=== PATIENT | male | born 1990 | race Caucasian/White ===

== ENCOUNTER 2016-10-18 12:57 | Emergency (ER) | payer OTHER ==
--- NOTE | 2016-10-18 13:25 | ED GI/GU/ABDOMINAL COMPLAINT ---
History of Present Illness General Chief Complaint: Abdominal Pain/Flank Pain Stated Complaint: RT ABD PAIN X 2DYS Source: patient Exam Limitations: no limitations Vital Signs & Intake/Output Vital Signs & Intake/Output Vital Signs Date Time Temp Pulse Resp B/P Pulse O2 O2 Flow FiO2 Ox Delivery Rate 10/18 1720 98.6 85 18 129/83 98 Room Air 10/18 1545 98.6 76 18 136/84 98 Room Air 10/18 1309 97.1 100 20 147/97 100 Room Air Allergies Coded Allergies: NO KNOWN ALLERGIES (05/23/13) Reconcile Medications Adalimumab (Humira Pen) 40 MG/0.8 ML PEN.IJ.KIT 1 SYR SC Q2W UNKNOWN ( Reported) Albuterol Sulfate (Proair Hfa) 90 MCG HFA.AER.AD 2 PUF INH Q4-6 PRN PRN BREATHING PROBLEMS (Reported) Cholestyramine (With Sugar) (Cholestyramine Packet) 4 GRAM POWD.PACK 1 PAC PO DAILY UNKNOWN (Reported) Desipramine HCl 10 MG TABLET 2 TAB PO QPM UNKNOWN (Reported) Dicyclomine HCl 10 MG CAPSULE 1 CAP PO Q6P PRN GI (Reported) Dicyclomine Hydrochloride (Bentyl) 10 MG CAPSULE 1 CAP PO TID PRN ABDOMINAL SPASMS Fluticasone/Salmeterol (Advair 250-50 Diskus) 250 MCG-50 MCG/DOSE BLST.W.DEV 1 PUF INH BID BREATHING PROBLEMS (Reported) Olopatadine HCl (Patanol) 0.1 % DROPS 1 GTT OPH BID ALLERGIES (Reported) Ondansetron (Zofran Odt) 4 MG TAB.RAPDIS 1 TAB SL TID PRN NAUSEA/VOMITING Triage Note: PT PRESENTS TO ER C/O OF RUQ PAIN THAT STARTED TWO DAYS AGO. PT STATES HE HAD AN ABDOMINAL XRAY TO LOOK FOR BLOCKAGES ON FRIDAY BECAUSE OF HIS CROHNS HX AND XRAY WAS NEGATIVE. PT ALSO C/O OF NAUSEA. Triage Nurses Notes Reviewed? yes HPI: This patient is a 26-year-old male with a past medical history including Crohn's disease requiring multiple abdominal surgeries who presented to the emergency department today for evaluation of abdominal pain. The patient reported that his pain began on Friday evening after he ate food. He reported the pain began abruptly approximately 2-3 minutes after eating. He reported that the pain is pretty constant and ranges from a 5 out of 10 to a 7 out of 10. The pain is sharp and occasionally radiates to his left upper abdomen, but primarily stays in his right upper abdomen. The patient reported nausea, but no vomiting. He reported some chills today, but no fevers. He denied any chest pain, difficulty breathing, urinary symptoms. The patient did report that he has been constipated. His last bowel movement was this morning and hard. He reported that he typically lives his bowels approximately 5-6 times a day. He denied any diarrhea or blood in the stool. (MEENAKSHI BARRIOS PA-C) Past History Travel History Traveled to [place] past 21 day No Medical History Any Pertinent Medical History? see below for history Neurological: NONE EENT: NONE Gastrointestinal: Crohn's disease, PERFORATION Surgical History Surgical History: RECTAL FISTULA, ILEECTOMY, ABDOMINAL MESH Psychosocial History What is your primary language Chinese Tobacco Use: Never used Family History Hx Contributory? No (MEENAKSHI BARRIOS PA-C) Review of Systems Review of Systems Constitutional: Reports: see HPI. EENTM: Reports: no symptoms. Respiratory: Reports: no symptoms. Cardiovascular: Reports: no symptoms. GI: Reports: see HPI. Genitourinary: Reports: no symptoms. Musculoskeletal: Reports: no symptoms. Skin: Reports: no symptoms. Neurological/Psychological: Reports: no symptoms. All Other Systems: Reviewed and Negative (MEENAKSHI BARRIOS PA-C) Physical Exam Physical Exam Gastrointestinal: normal bowel sounds, soft, NONDISTENDED. nO ORGANOMEGALY APPRECIATED. tENDERNESS TO PALPATION IN THE RIGHT UPPER QUADRANT. pOSITIVE Tellez SIGN. nO mCbURNEY'S POINT TENDERNESS. nO REBOUND OR GUARDING Comments: Well-developed well-nourished person in no acute distress HEENT: Normal EENT exam, moist mucous membranes Pupils equally round and reactive to light. Neck: Supple, no lymphadenopathy Back: Normal inspection. Normal gait Cardiovascular: Regular rate and rhythm with no murmurs Respiratory: No respiratory distress. Breath sounds clear to auscultation bilaterally Extremity: Normal and equal pulses Neuro: Alert oriented x3, cranial nerves II through XII grossly intact. Skin: No appreciable rash on exposed skin, skin is warm and dry. Psych: Mood and affect is normal Core Measures ACS in differential dx? No Severe Sepsis Present: No Septic Shock Present: No (MEENAKSHI BARRIOS PA-C) Progress Differential Diagnosis: AMI, appendicitis, biliary colic, bowel obstruction, colon cancer, cholecystitis, diverticulitis, gastritis, hepatitis, ischemic bowel, inflamm bowel dis, pancreatitis, PUD/GERD, perforated viscous, pyelonephritis, SBO, ureterolithiasis, UTI/pyelo Plan of Care: Orders Procedure Date/time Status RAPID VIRAL INFLUENZA A 10/18 131 Complete LIPASE 10/18 131 Complete LACTIC ACID 10/18 131 Complete DIRECT BILIRUBIN 10/18 131 Complete COMPREHENSIVE METABOLIC PANEL 10/18 1312 Complete CBC WITHOUT DIFFERENTIAL 10/18 1311 Complete AMYLASE 10/18 1312 Complete URINALYSIS 10/18 1304 Complete Laboratory Tests 10/18/16 1612: Lactic Acid Cancelled 10/18/16 1315: Anion Gap 14, Estimated GFR > 60, BUN/Creatinine Ratio 13.0, Glucose 93, Lactic Acid 1.5, Calcium 9.5, Total Bilirubin 0.8, Direct Bilirubin 0.5 H, AST 25, ALT 42, Alkaline Phosphatase 95, Total Protein 9.2 H, Albumin 5.0, Globulin 4.2, Albumin/Globulin Ratio 1.2, Amylase 73, Lipase 58, CBC w Diff MAN DIFF ORDERED, RBC 5.35, MCV 89.0, MCH 29.8, RDW 13.5, MPV 7.8, Gran % 28.5 L, Lymphocytes % 56.7 H, Monocytes % 7.8, Eosinophils % 6.4 H, Basophils % 0.6, Absolute Granulocytes 2.1, Absolute Lymphocytes 4.3 H, Absolute Monocytes 0.6, Absolute Eosinophils 0.5, Absolute Basophils 0, Platelet Estimate ADEQUATE, Normocytic RBCs VERIFIED, Normochromic RBCs VERIFIED, PUBS MCHC 33.4 10/18/16 1305: Urine Color YEL, Urine Clarity CLEAR, Urine pH 6.0, Ur Specific [place] 1.015, Urine Protein NEG, Urine Ketones NEG, Urine Nitrite NEG, Urine Bilirubin NEG, Urine Urobilinogen 0.2, Ur Leukocyte Esterase NEG, Ur Microscopic EXAM NOT REQUIRED, Urine Hemoglobin NEG, Urine Glucose NEG Diagnostic Imaging: Viewed by Me: CT Scan, Ultrasound. Discussed w/RAD: CT Scan, Ultrasound. Radiology Impression: PATIENT: SUSHMA OCAMPO PRESENT AGE: 26 PATIENT ACCOUNT NO: [id number] : 88 LOCATION: [facility] ORDERING PHYSICIAN: MEENAKSHI BARRIOS PA-C SERVICE DATE: 10/18/161417 EXAM TYPE: CAT - CT ABD & PELVIS W IV CONTRAST EXAMINATION: CT ABDOMEN AND PELVIS WITH CONTRAST CLINICAL INFORMATION: Right upper quadrant pain COMPARISON: CT abdomen and pelvis 04/27/2014 TECHNIQUE: Multidetector volumetric imaging was performed of the abdomen and pelvis before and after the IV administration of 94 mL of Omnipaque 300 intravenous contrast. Sagittal and coronal reformatted images were obtained on the technologist's workstation. DLP: 282.2 mGy-cm. FINDINGS: LUNG BASES: The visualized lung bases are unremarkable. LIVER, GALLBLADDER, AND BILIARY TREE: Within segment 8 of the liver there is a hypodense lesion measuring 2.3 x 2.3 cm, previously 1.7 x 1.3 cm. The Hounsfield units are not consistent with a simple cyst in the lesion remains indeterminate. The margins are ill-defined (image 19, series 2). Remainder of the liver enhances within normal range. No other lesion. No intrahepatic or extra hepatic biliary dilatation. The gallbladder is unremarkable with no evidence of radiopaque gallstones, gallbladder wall thickening, or obvious pericholecystic inflammatory changes. PANCREAS: Unremarkable. SPLEEN: Spleen is top normal in size measuring 12.5 cm in length. ADRENAL GLANDS: Unremarkable. KIDNEYS AND URETERS: The kidneys are normal in size, shape, and attenuation. No hydronephrosis, hydroureter, or calculi seen. No perinephric stranding. BLADDER: Unremarkable. GASTROINTESTINAL TRACT: Surgical anastomosis is noted in the right upper quadrant associated with the proximal colon. Dense stool is noted within the proximal colon. However, the small bowel proximal to this level is normal in caliber. There are no inflammatory changes associated with this loop of bowel in the right upper quadrant. The remainder of the small and large bowel are unremarkable. ABDOMINAL WALL: No significant hernia is appreciated. LYMPH NODES: There is no pathologic mesenteric adenopathy. A few normal caliber lymph nodes are noted throughout the mesentery. There are enlarged lymph nodes within the retroperitoneal region. The largest is located at the level of the inferior pole of the left kidney measuring 1.1 cm in short axis diameter. Overall, the number lymph nodes in the retroperitoneal and periaortic region are increased in number. VASCULAR: Unremarkable. PELVIC VISCERA: The prostate and seminal vesicles appear grossly unremarkable. There is no free fluid within the pelvis. No pathologic pelvic adenopathy identified. OSSEOUS STRUCTURES: Unremarkable. IMPRESSION: 1. Normal gallbladder. 2. Enlarging size of indeterminant right liver lesion compared to 2014. This finding in combination with prominent retroperitoneal adenopathy raises the possibility of a testicular neoplasm in this age group. Recommend further evaluation of the liver with dedicated MRI with and without contrast. Consider testicular ultrasound in conjunction with physical examination. DICTATED BY: CAROLA FLORES MD DATE/TIME DICTATED:10/18/161440 HOME APPLIANCE TECHNICIAN:LETITIA DATE/TIME TRANSCRIBED:10/18/161440 CONFIDENTIAL, DO NOT COPY WITHOUT APPROPRIATE AUTHORIZATION. <Electronically signed in Other Vendor System> SIGNED BY: CAROLA FLORES MD 10/18/16 1501, PATIENT: SUSHMA OCAMPO PRESENT AGE: 26 PATIENT ACCOUNT NO: [id number] : 88 LOCATION: [facility] ORDERING PHYSICIAN: MEENAKSHI BARRIOS PA-C SERVICE DATE: 10/18/16 EXAM TYPE: US - US-TESTICULAR EXAMINATION: US SCROTUM CLINICAL INFORMATION: CT scan shows liver mass and mild retroperitoneal adenitis. Evaluate for testicular neoplasm. COMPARISON: CT scan of the abdomen and pelvis dated 10/18/2016. TECHNIQUE: A sonogram of the scrotum was performed assessing [place]-scale appearance and color Doppler flow. FINDINGS: RIGHT: Right testicle measures 4.1 x 2.4 x 3.1 cm, volume 21.7 mL. Parenchymal echotexture is normal. No focal testicular parenchymal lesions are visualized. Normal symmetric intratesticular flow is visualized. Right epididymal head is normal in size. Small right hydrocele is seen. No varicocele is seen. LEFT: Left testicle measures 4.4 x 2.8 x 3.3 cm, volume 28.9 mL. Parenchymal echotexture is normal. No focal testicular parenchymal lesions are visualized. Normal symmetric intratesticular flow is visualized. Left epididymal head is normal in size. Small left hydrocele is seen. No varicocele is seen. IMPRESSION: 1. Small bilateral hydroceles. 2. Bilateral testicle is normal. No focal testicular mass. 3. No scrotal mass. DICTATED BY: OLGA OROSCO MD DATE/TIME DICTATED:10/18/161643 HOME APPLIANCE TECHNICIAN:LETITIA DATE/TIME TRANSCRIBED:10/18/161643 CONFIDENTIAL, DO NOT COPY WITHOUT APPROPRIATE AUTHORIZATION. <Electronically signed in Other Vendor System> SIGNED BY: OLGA OROSCO MD 10/18/16 7848 Initial ED EKG: none Comments: 10/18/2016 5:31:39 PM: I spoke to the on-call juice standardizer at the practice where this patient sees his regular juice standardizer. Updated him on the results of the CT scan. He reported that this patient recently had an MRI in 2015 which did not show a lesion on the liver. However, there was a lesion seen on MRI back in 2012, at 1.7 cm. Updated this physician on the patient's laboratory results and workup here in the emergency department. He reported this patient should be stable for outpatient follow-up. He reported that he will be passing this information on to this patient's regular juice standardizer. 10/18/2016 5:36:26 PM: Was at the patient's bedside for reevaluation. Updated him on all imaging and laboratory studies. Discussed this patient with Dr. Garcia. The patient reported relief of his nausea and abdominal pain. He will be following up in the office with his juice standardizer. Encourage the patient to call to schedule a follow-up appointment tomorrow. (MEENAKSHI BARRIOS PA-C) Departure Departure Disposition: HOME OR SELF CARE Condition: Stable Clinical Impression Primary Impression: Abdominal pain Qualifiers: Abdominal location: right upper quadrant Qualified Code: R10.11 - Right upper quadrant pain Referrals: JOAQUIM FATIMA MD Additional Instructions: Please call your juice standardizer tomorrow morning to schedule a follow-up appointment. Take Zofran as prescribed for nausea. Take Advil as prescribed for abdominal spasms. Please be sure to stay hydrated. Return to the emergency department for any worsening symptoms or concerns. Departure Forms: Customer Survey General Discharge Information Prescriptions: Current Visit Scripts Ondansetron (Zofran Odt) 1 TAB SL TID PRN NAUSEA/VOMITING #10 TAB Dicyclomine Hydrochloride (Bentyl) 1 CAP PO TID PRN ABDOMINAL SPASMS #15 CAP (MEENAKSHI BARRIOS PA-C) PA/HADOOP ENGINEER Co-Sign Statement Statement: ED Attending supervision documentation- [] I saw and evaluated the patient. I have also reviewed all the pertinent lab results and diagnostic results. I agree with the findings and the plan of care as documented in the PA's/HADOOP ENGINEER's documentation. [X] I have reviewed the ED Record and agree with the PA's/HADOOP ENGINEER's documentation. [] Additions or exceptions (if any) to the PAs/HADOOP ENGINEER's note and plan are summarized below: [] (LYNN PACK,ANDREIA)
[2016-10-18 13:32] LABS: ABSOLUTE BASOPHIL COUNT 0 /CUMM (0.0-0.2); ABSOLUTE EOSINOPHIL COUNT 0.5 /CUMM (0.0-0.7); ABSOLUTE GRANULOCYTE CT 2.1 /CUMM (1.4-6.5); ABSOLUTE LYMPH COUNT 4.3 /CUMM (1.2-3.4); ABSOLUTE MONOCYTE COUNT 0.6 /CUMM (0.10-0.60); BASOPHIL % 0.6 % (0.0-2.0); EOSINOPHIL % 6.4 % (0-5); GRANULOCYTE % 28.5 % (42.2-75.2); HEMATOCRIT 47.6 % (42-52); MEAN CORPUSCULAR HGB 29.8 PG (27.0-31.0); MEAN CORPUSCULAR HGB CONC 33.4 G/DL (33.0-37.0); MEAN PLATELET VOLUME 7.8 FL (7.4-10.4); PLATELET COUNT 238 /CUMM (130-400); RBC DISTRIBUTION WIDTH 13.5 % (11.5-14.5); RED BLOOD CELL CT 5.35 /CUMM (4.70-6.10); WHITE BLOOD CELL COUNT 7.5 /CUMM (4.8-10.8)
[2016-10-18] MEDS ORDERED: CHOLESTYRAMINE P4 GM PO (13:46)
[2016-10-18] MEDS ORDERED: HUMIRA PEN40 MG/0.8 SC (13:46)
[2016-10-18] MEDS ORDERED: ADVAIR 250-501 EACH INH (13:47)
[2016-10-18] MEDS ORDERED: DESIPRAMINE HCL PO (13:47)
[2016-10-18] MEDS ORDERED: PROAIR HFA8.5 GM INH (13:47)
[2016-10-18] MEDS ORDERED: DICYCLOMINE HCL10 M1 PO (13:47)
[2016-10-18] MEDS ORDERED: PATANOL5 ML OPH (13:48)
--- NOTE | 2016-10-18 15:01 | CT SCAN REPORT ---
EXAMINATION: CT ABDOMEN AND PELVIS WITH CONTRAST CLINICAL INFORMATION: Right upper quadrant pain COMPARISON: CT abdomen and pelvis 04/27/2014 TECHNIQUE: Multidetector volumetric imaging was performed of the abdomen and pelvis before and after the IV administration of 94 mL of Omnipaque 300 intravenous contrast. Sagittal and coronal reformatted images were obtained on the technologist's workstation. DLP: 282.2 mGy-cm. FINDINGS: LUNG BASES: The visualized lung bases are unremarkable. LIVER, GALLBLADDER, AND BILIARY TREE: Within segment 8 of the liver there is a hypodense lesion measuring 2.3 x 2.3 cm, previously 1.7 x 1.3 cm. The Hounsfield units are not consistent with a simple cyst in the lesion remains indeterminate. The margins are ill-defined (image 19, series 2). Remainder of the liver enhances within normal range. No other lesion. No intrahepatic or extra hepatic biliary dilatation. The gallbladder is unremarkable with no evidence of radiopaque gallstones, gallbladder wall thickening, or obvious pericholecystic inflammatory changes. PANCREAS: Unremarkable. SPLEEN: Spleen is top normal in size measuring 12.5 cm in length. ADRENAL GLANDS: Unremarkable. KIDNEYS AND URETERS: The kidneys are normal in size, shape, and attenuation. No hydronephrosis, hydroureter, or calculi seen. No perinephric stranding. BLADDER: Unremarkable. GASTROINTESTINAL TRACT: Surgical anastomosis is noted in the right upper quadrant associated with the proximal colon. Dense stool is noted within the proximal colon. However, the small bowel proximal to this level is normal in caliber. There are no inflammatory changes associated with this loop of bowel in the right upper quadrant. The remainder of the small and large bowel are unremarkable. ABDOMINAL WALL: No significant hernia is appreciated. LYMPH NODES: There is no pathologic mesenteric adenopathy. A few normal caliber lymph nodes are noted throughout the mesentery. There are enlarged lymph nodes within the retroperitoneal region. The largest is located at the level of the inferior pole of the left kidney measuring 1.1 cm in short axis diameter. Overall, the number lymph nodes in the retroperitoneal and periaortic region are increased in number. VASCULAR: Unremarkable. PELVIC VISCERA: The prostate and seminal vesicles appear grossly unremarkable. There is no free fluid within the pelvis. No pathologic pelvic adenopathy identified. OSSEOUS STRUCTURES: Unremarkable. IMPRESSION: 1. Normal gallbladder. 2. Enlarging size of indeterminant right liver lesion compared to 2013. This finding in combination with prominent retroperitoneal adenopathy raises the possibility of a testicular neoplasm in this age group. Recommend further evaluation of the liver with dedicated MRI with and without contrast. Consider testicular ultrasound in conjunction with physical examination.
--- NOTE | 2016-10-18 16:51 | ULTRASOUND REPORT ---
EXAMINATION: US SCROTUM CLINICAL INFORMATION: CT scan shows liver mass and mild retroperitoneal adenitis. Evaluate for testicular neoplasm. COMPARISON: CT scan of the abdomen and pelvis dated 10/18/2016. TECHNIQUE: A sonogram of the scrotum was performed assessing [place]-scale appearance and color Doppler flow. FINDINGS: RIGHT: Right testicle measures 4.1 x 2.4 x 3.1 cm, volume 21.7 mL. Parenchymal echotexture is normal. No focal testicular parenchymal lesions are visualized. Normal symmetric intratesticular flow is visualized. Right epididymal head is normal in size. Small right hydrocele is seen. No varicocele is seen. LEFT: Left testicle measures 4.4 x 2.8 x 3.3 cm, volume 28.9 mL. Parenchymal echotexture is normal. No focal testicular parenchymal lesions are visualized. Normal symmetric intratesticular flow is visualized. Left epididymal head is normal in size. Small left hydrocele is seen. No varicocele is seen. IMPRESSION: 1. Small bilateral hydroceles. 2. Bilateral testicle is normal. No focal testicular mass. 3. No scrotal mass.
[2016-10-18 17:20] VITALS: BP 129/83
[2016-10-18] MEDS ORDERED: BENTYL10 M1 PO (17:38)
[2016-10-18] MEDS ORDERED: ZOFRAN ODT4 M1 SL (17:38)
[2017-03-10] MEDS ORDERED: FLONASE ALLERG9.9 ML (12:51)
[2017-03-10] MEDS ORDERED: ALLEGRA ALLERG180 M1 PO (12:51)
[2017-03-10] MEDS ORDERED: CYMBALTA30 M1 PO (12:51)
[2017-03-10] MEDS ORDERED: AMBIEN10 M1 PO (12:52)
[2017-03-10] MEDS ORDERED: OXYCODONE-ACET1 EAC1 PO (12:52)
== END 2016-10-18 17:47 ==
LOC: ERH 12:57
PROVIDERS: Physician Assistant
DX: R10.11 Right upper quadrant pain (principal)
CPT/HCPCS: 74177; 81003; 87804; 87804-59; 96374; 96375; J1885; J2405; J2765

== ENCOUNTER 2016-10-30 09:17 | Inpatient (IN) | payer OTHER ==
[~2016-10-30] VITALS: Ht 172.7 cm; Wt 72.6 kg
[~2016-10-30 09:17] MED LIST: ADVAIR 250-501 EACH INH; BENTYL10 M1 PO; CHOLESTYRAMINE P4 GM PO; DESIPRAMINE HCL PO; DICYCLOMINE HCL10 M1 PO; HUMIRA PEN40 MG/0.8 SC; PATANOL5 ML OPH; PROAIR HFA8.5 GM INH; ZOFRAN ODT4 M1 SL
--- NOTE | 2016-10-30 09:26 | NUR ---
PT AMB TO ROOM 1, AWAITING EVAL. Informed waiting has been performed.
--- NOTE | 2016-10-30 09:26 | ED GENERAL ADULT ---
History of Present Illness General Chief Complaint: Abdominal Pain/Flank Pain Stated Complaint: ABD PAIN HX OF CHRONS Source: patient Exam Limitations: no limitations Vital Signs & Intake/Output Vital Signs & Intake/Output Vital Signs Date Time Temp Pulse Resp B/P Pulse O2 O2 Flow FiO2 Ox Delivery Rate 10/30 1801 99.5 118 20 118/60 93 Room Air 10/30 1700 101.1 120 22 120/80 98 Room Air 10/30 1454 100.3 128 22 123/78 96 Room Air 10/30 1313 100.1 138 18 125/59 95 Room Air 10/30 1157 100.8 10/30 1150 100.8 130 20 118/67 100 Room Air 10/30 1135 100.3 10/30 1046 100.3 120 20 121/78 96 Room Air 10/30 0919 98.1 154 16 115/87 99 Room Air Allergies Coded Allergies: NO KNOWN ALLERGIES (05/23/13) Reconcile Medications Adalimumab (Humira Pen) 40 MG/0.8 ML PEN.IJ.KIT 1 SYR SC Q2W UNKNOWN ( Reported) Albuterol Sulfate (Proair Hfa) 90 MCG HFA.AER.AD 2 PUF INH Q4-6 PRN PRN BREATHING PROBLEMS (Reported) Cholestyramine (With Sugar) (Cholestyramine Packet) 4 GRAM POWD.PACK 1 PAC PO DAILY UNKNOWN (Reported) Desipramine HCl 50 MG TABLET 1 TAB PO QPM UNKNOWN (Reported) Dicyclomine HCl 10 MG CAPSULE 1 CAP PO Q6P PRN GI (Reported) Fluticasone Propionate/Salme (Advair Hfa 230-21 Mcg Inhaler) 230 MCG-21 MCG/ ACTUATION HFA.AER.AD BREATHING PROBLEMS (Reported) Olopatadine HCl (Patanol) 0.1 % DROPS 1 GTT OPH BID ALLERGIES (Reported) Ondansetron (Zofran Odt) 4 MG TAB.RAPDIS 1 TAB SL TID PRN NAUSEA/VOMITING Triage Note: PT STATES THAT HE HAS HISTORY OF [place] AND THAT HE HAS BEEN HAVING SHARP ABD PAIN SINCE LAST PM AND INTERMITTANT FEVERS. AFEBRILE AT THIS TIME, COMPLAINS OF NAUSEA. TOOK A PERCOCET AROUND 0615 THAT HELPED SOME WITH THE PAIN Triage Nurses Notes Reviewed? yes Onset: Abrupt Duration: week(s): Timing: recent history HPI: 10/30/16 26-year-old male presents to the emergency department for an exacerbation of Crohn's disease. According to the patient he had a history of Crohn's disease, he is status post abdominal resection and had his terminal ileum removed. He also has had a hernia repair. Now he comes in with 48 hours of crampy abdominal pain and severe nausea. He did have a bowel movement yesterday. The onset of the symptoms were abrupt, the duration has been 48 hours, the severity is significant as his symptoms required to come to the emergency department for care. The patient does say that he's had symptoms over the past week as well. I spoke with Dr. rodas informing the patient did have fever. He requested labs be drawn. The patient be given Zofran and IV fluids. He requested that I contact him after the results of the blood work And returned. Past History Travel History Traveled to [place] past 21 day No Medical History Any Pertinent Medical History? see below for history Neurological: NONE EENT: NONE Cardiovascular: NONE Respiratory: NONE Gastrointestinal: Crohn's disease, PERFORATION Hepatic: NONE Renal: NONE Musculoskeletal: NONE Psychiatric: NONE Endocrine: NONE Blood Disorders: NONE Cancer(s): NONE [employer]ING/Reproductive: NONE Surgical History Surgical History: RECTAL FISTULA, ILEECTOMY, ABDOMINAL MESH Psychosocial History What is your primary language Israeli Tobacco Use: Never used ETOH Use: denies use Illicit Drug Use: denies illicit drug use Family History Hx Contributory? No Review of Systems Review of Systems Constitutional: Denies: fever. EENTM: Denies: visual changes. Respiratory: Denies: short of breath. Cardiovascular: Denies: chest pain. GI: Reports: abdominal pain, nausea. Denies: vomiting. Genitourinary: Reports: no symptoms. Musculoskeletal: Reports: no symptoms. Skin: Denies: rash. Neurological/Psychological: Reports: no symptoms. Hematologic/Endocrine: Reports: no symptoms. Physical Exam Physical Exam General Appearance: alert, awake, anxious, mild distress Head: atraumatic, normal appearance Eyes: Bilateral: normal appearance, PERRL, EOMI. Ears, Nose, Throat: normal pharynx, normal ENT inspection Neck: normal inspection, supple, full range of motion Respiratory: normal breath sounds, chest non-tender, no respiratory distress Cardiovascular: regular rate/rhythm Peripheral Pulses: 4+ radial (R), 4+ radial (L) Gastrointestinal: soft, tenderness, diffuse, no rebound or guarding Back: normal range of motion Extremities: normal inspection, normal range of motion, no edema Neurologic/Psych: no motor/sensory deficits, awake, alert, oriented x 3 Skin: intact, normal color, warm/dry Core Measures ACS in differential dx? No CVA/TIA Diagnosis: No Severe Sepsis Present: No Septic Shock Present: No Progress Differential Diagnoses I considered the following diagnoses in my evaluation of the patient: [ Diverticulitis, Crohn's disease exacerbation, abscess, viral syndrome, gastroenteritis,] Plan of Care: Orders Procedure Date/time Status PHOSPHORUS 10/31 06 Active MAGNESIUM 10/31 599 Active GLUCOSE 10/31 599 Active CBC WITHOUT DIFFERENTIAL 10/31 599 Active BASIC ELECTROLYTES PLUS BUN&CR 10/31 599 Active Nothing by Mouth 10/30 D Active Patient Data 10/30 1523 Active Code Status 10/30 1523 Active Admit to inpatient 10/30 1451 Active Vital Signs 10/30 1451 Active URINALYSIS 10/30 1208 Complete LIPASE 10/30 0937 Complete COMPREHENSIVE METABOLIC PANEL 10/30 0937 Complete CBC WITHOUT DIFFERENTIAL 10/30 0937 Complete AMYLASE 10/30 0937 Complete VTE Mechanical Prophylaxis 10/30 UNK Active Vital Signs 10/30 UNK Active Intake & Output 10/30 UNK Active Current Medications Sig/Tawny Start time Last Medication Dose Stop Time Status Admin Budesonide/ 2 PUF BID 10/30 2200 AC Formoterol Fumarate (Symbicort) Heparin Sodium 5,000 UNIT Q8 10/30 2200 AC (Porcine) Albuterol Sulfate 2 PUF Q4P PRN 10/30 1545 AC (Ventolin) Acetaminophen 1,000 MG Q6P PRN 10/30 1530 AC (Ofirmev) N/A 1 UNIT (No Carrier) Hydromorphone HCl 0.6 MG Q4-6 PRN PRN 10/30 1530 AC (Dilaudid) Hydromorphone HCl 0.2 MG Q4P PRN 10/30 1530 AC (Dilaudid) Ondansetron HCl 4 MG Q6P PRN 10/30 1530 AC (Zofran) Laboratory Tests 10/30/16 1210: Urine Color YEL, Urine Clarity CLEAR, Urine pH 6.0, Ur Specific Bullock 1.015, Urine Protein NEG, Urine Ketones NEG, Urine Nitrite NEG, Urine Bilirubin NEG, Urine Urobilinogen 0.2, Ur Leukocyte Esterase NEG, Ur Microscopic EXAM NOT REQUIRED, Urine Hemoglobin NEG, Urine Glucose NEG 10/30/16 0945: Anion Gap 8, Estimated GFR > 60, BUN/Creatinine Ratio 9.2, Glucose 88, Calcium 9.6, Total Bilirubin 0.7, AST 26, ALT 50, Alkaline Phosphatase 107, Total Protein 8.5 H, Albumin 4.7, Globulin 3.8, Albumin/Globulin Ratio 1.2, Amylase 51, Lipase 40, CBC w Diff NO MAN DIFF REQ, RBC 5.14, MCV 86.2, MCH 29.7, RDW 13.1, MPV 7.2 L, Gran % 45.0, Lymphocytes % 35.7, Monocytes % 14.2 H, Eosinophils % 4.5, Basophils % 0.6, Absolute Granulocytes 2.1, Absolute Lymphocytes 1.7, Absolute Monocytes 0.7 H, Absolute Eosinophils 0.2, Absolute Basophils 0, PUBS MCHC 34.5 Initial ED EKG: none Departure Departure Disposition: STILL A PATIENT Condition: Stable Clinical Impression Primary Impression: Crohn disease Referrals: CHARLENE FAJARDO MD (PCP/Family) Departure Forms: Customer Survey General Discharge Information Comments The patient had ongoing pain. He was requiring IV narcotics for pain control. The case was discussed with his colorectal surgeon, Dr. Mansfield, he was admitted to the hospital for further care. CT on 10/18/16 PATIENT: SUSHMA OCAMPO PRESENT AGE: 26 PATIENT ACCOUNT NO: [id number] : 88 LOCATION: [facility] ORDERING PHYSICIAN: MEENAKSIH BARRIOS PA-C SERVICE DATE: 10/18/165701 EXAM TYPE: US - US-TESTICULAR EXAMINATION: US SCROTUM CLINICAL INFORMATION: CT scan shows liver mass and mild retroperitoneal adenitis. Evaluate for testicular neoplasm. COMPARISON: CT scan of the abdomen and pelvis dated 10/18/2016. TECHNIQUE: A sonogram of the scrotum was performed assessing [place]-scale appearance and color Doppler flow. FINDINGS: RIGHT: Right testicle measures 4.1 x 2.4 x 3.1 cm, volume 21.7 mL. Parenchymal echotexture is normal. No focal testicular parenchymal lesions are visualized. Normal symmetric intratesticular flow is visualized. Right epididymal head is normal in size. Small right hydrocele is seen. No varicocele is seen. LEFT: Left testicle measures 4.4 x 2.8 x 3.3 cm, volume 28.9 mL. Parenchymal echotexture is normal. No focal testicular parenchymal lesions are visualized. Normal symmetric intratesticular flow is visualized. Left epididymal head is normal in size. Small left hydrocele is seen. No varicocele is seen. IMPRESSION: 1. Small bilateral hydroceles. 2. Bilateral testicle is normal. No focal testicular mass. 3. No scrotal mass. DICTATED BY: OLGA OROSCO MD DATE/TIME DICTATED:10/18/161643 SCHOOL COUNSELLOR:LETITIA DATE/TIME TRANSCRIBED:10/18/161643 CONFIDENTIAL, DO NOT COPY WITHOUT APPROPRIATE AUTHORIZATION. <Electronically signed in Other Vendor System> SIGNED BY: OLGA OROSCO MD 1650 PATIENT: SUSHMA OCAMPO PRESENT AGE: 26 PATIENT ACCOUNT NO: [id number] : 88 LOCATION: [facility] ORDERING PHYSICIAN: MEENAKSHI BARRIOS PA-C SERVICE DATE: 10/18/16 EXAM TYPE: CAT - CT ABD & PELVIS W IV CONTRAST EXAMINATION: CT ABDOMEN AND PELVIS WITH CONTRAST CLINICAL INFORMATION: Right upper quadrant pain COMPARISON: CT abdomen and pelvis 04/27/2014 TECHNIQUE: Multidetector volumetric imaging was performed of the abdomen and pelvis before and after the IV administration of 94 mL of Omnipaque 300 intravenous contrast. Sagittal and coronal reformatted images were obtained on the technologist's workstation. DLP: 282.2 mGy-cm. FINDINGS: LUNG BASES: The visualized lung bases are unremarkable. LIVER, GALLBLADDER, AND BILIARY TREE: Within segment 8 of the liver there is a hypodense lesion measuring 2.3 x 2.3 cm, previously 1.7 x 1.3 cm. The Hounsfield units are not consistent with a simple cyst in the lesion remains indeterminate. The margins are ill-defined (image 19, series 2). Remainder of the liver enhances within normal range. No other lesion. No intrahepatic or extra hepatic biliary dilatation. The gallbladder is unremarkable with no evidence of radiopaque gallstones, gallbladder wall thickening, or obvious pericholecystic inflammatory changes. PANCREAS: Unremarkable. SPLEEN: Spleen is top normal in size measuring 12.5 cm in length. ADRENAL GLANDS: Unremarkable. KIDNEYS AND URETERS: The kidneys are normal in size, shape, and attenuation. No hydronephrosis, hydroureter, or calculi seen. No perinephric stranding. BLADDER: Unremarkable. GASTROINTESTINAL TRACT: Surgical anastomosis is noted in the right upper quadrant associated with the proximal colon. Dense stool is noted within the proximal colon. However, the small bowel proximal to this level is normal in caliber. There are no inflammatory changes associated with this loop of bowel in the right upper quadrant. The remainder of the small and large bowel are unremarkable. ABDOMINAL WALL: No significant hernia is appreciated. LYMPH NODES: There is no pathologic mesenteric adenopathy. A few normal caliber lymph nodes are noted throughout the mesentery. There are enlarged lymph nodes within the retroperitoneal region. The largest is located at the level of the inferior pole of the left kidney measuring 1.1 cm in short axis diameter. Overall, the number lymph nodes in the retroperitoneal and periaortic region are increased in number. VASCULAR: Unremarkable. PELVIC VISCERA: The prostate and seminal vesicles appear grossly unremarkable. There is no free fluid within the pelvis. No pathologic pelvic adenopathy identified. OSSEOUS STRUCTURES: Unremarkable. IMPRESSION: 1. Normal gallbladder. 2. Enlarging size of indeterminant right liver lesion compared to 2014. This finding in combination with prominent retroperitoneal adenopathy raises the possibility of a testicular neoplasm in this age group. Recommend further evaluation of the liver with dedicated MRI with and without contrast. Consider testicular ultrasound in conjunction with physical examination. DICTATED BY: CAROLA FLORES MD DATE/TIME DICTATED:10/18/161440 SCHOOL COUNSELLOR:LETITIA DATE/TIME TRANSCRIBED:10/18/161440 CONFIDENTIAL, DO NOT COPY WITHOUT APPROPRIATE AUTHORIZATION. <Electronically signed in Other Vendor System> SIGNED BY: CAROLA FLORES MD 10/18/16 1501 Admission Note Spoke With: JULY MANSFIELD JR, DO Documentation of Exam: Documentation of any treatments & extenuating circumstances including Concerns Regarding Discharge (functional status, medication knowledge or non-compliance, living conditions, etc.) that warrant an admission rather than observation: [The patient needs admission for IV fluids, possible colonoscopy, consider GI consult , IV narcotics for pain control] CT scan showing below PATIENT: SUSHMA OCAMPO PRESENT AGE: 26 PATIENT ACCOUNT NO: [id number] : 88 LOCATION: [facility] ORDERING PHYSICIAN: CLAIRE MUKHERJEE DO SERVICE DATE: 10/30/16 EXAM TYPE: CAT - CT ABD & PELVIS W ORAL & IV CO EXAMINATION: CT ABDOMEN AND PELVIS WITH CONTRAST CLINICAL INFORMATION: 26-year-old man with abdominal pain. History of Crohn's disease. COMPARISON: 10/18/[address] TECHNIQUE: Multidetector volumetric imaging was performed of the abdomen and pelvis after oral and the IV administration of 96 mL of Optiray 320 intravenous contrast. Sagittal and coronal reformatted images were obtained on the technologist's workstation. DLP: 350 mGy-cm. FINDINGS: Dependent changes are noted at both lung bases and appear new since the previous study. A 2.3 cm indeterminate lesion is again noted in the right lobe of the liver. The spleen, pancreas, adrenals, kidneys, and gallbladder continue to enhance normally and demonstrate no discrete anatomic abnormality. An ileocecal anastomosis is again noted in the right lower quadrant. Nondilated loops of large and small bowel are otherwise fairly unremarkable. Enteric contrast has reached the mid jejunum with relative decompression of more distal ileal loops. The prostate, seminal vesicles, and bladder are normal in appearance. Small retroperitoneal lymph nodes are unchanged. IMPRESSION: Stable CT appearance of the abdomen, demonstrating no acute intra-abdominal process. DICTATED BY: SARAH LOVE MD DATE/TIME DICTATED:10/30/161412 SCHOOL COUNSELLOR:LETITIA DATE/TIME TRANSCRIBED:10/30/161412 CONFIDENTIAL, DO NOT COPY WITHOUT APPROPRIATE AUTHORIZATION. <Electronically signed in Other Vendor System> SIGNED BY: SARAH LOVE MD 10/30/16 1421 Critical Care Note Critical Care Note Critical Care Time: non-applicable
--- NOTE | 2016-10-30 09:30 | NUR ---
DR MUKHERJEE IN FOR EVAL
[2016-10-30] MEDS ORDERED: ADVAIR HFA 230-12 GM PO (09:34)
[2016-10-30 09:52] LABS: ABSOLUTE BASOPHIL COUNT 0 /CUMM (0.0-0.2); ABSOLUTE EOSINOPHIL COUNT 0.2 /CUMM (0.0-0.7); ABSOLUTE GRANULOCYTE CT 2.1 /CUMM (1.4-6.5); ABSOLUTE LYMPH COUNT 1.7 /CUMM (1.2-3.4); ABSOLUTE MONOCYTE COUNT 0.7 /CUMM (0.10-0.60); BASOPHIL % 0.6 % (0.0-2.0); EOSINOPHIL % 4.5 % (0-5); HEMATOCRIT 44.3 % (42-52); MEAN CORPUSCULAR HGB 29.7 PG (27.0-31.0); MEAN CORPUSCULAR HGB CONC 34.5 G/DL (33.0-37.0); MEAN CORPUSCULAR VOLUME 86.2 FL (80.0-94.0); MEAN PLATELET VOLUME 7.2 FL (7.4-10.4); PLATELET COUNT 203 /CUMM (130-400); RBC DISTRIBUTION WIDTH 13.1 % (11.5-14.5); RED BLOOD CELL CT 5.14 /CUMM (4.70-6.10); WHITE BLOOD CELL COUNT 4.7 /CUMM (4.8-10.8)
--- NOTE | 2016-10-30 11:34 | NUR ---
MEDICATED WITH IV TYLENOL FOR TEMP 100.3. AWAITING CAT SCAN. Informed waiting has been performed.
--- NOTE | 2016-10-30 11:45 | NUR ---
DRINKING 1ST BOTTLE OF PO CAT SCAN CONTRAST, WILL HAVE CAT SCAN AT 1345.
--- NOTE | 2016-10-30 12:10 | NUR ---
URINE TRIO SENT TO LAB
--- NOTE | 2016-10-30 13:30 | NUR ---
AMBULATORY TO AND FROM BATHROOM. AWAITING CAT SCAN AT 1345.
--- NOTE | 2016-10-30 13:38 | NUR ---
PT AMB TO CAT SCAN.
--- NOTE | 2016-10-30 13:43 | NUR ---
BACK FROM CAT SCAN
--- NOTE | 2016-10-30 14:21 | CT SCAN REPORT ---
EXAMINATION: CT ABDOMEN AND PELVIS WITH CONTRAST CLINICAL INFORMATION: 26-year-old man with abdominal pain. History of Crohn's disease. COMPARISON: 10/18/[address] TECHNIQUE: Multidetector volumetric imaging was performed of the abdomen and pelvis after oral and the IV administration of 96 mL of Optiray 320 intravenous contrast. Sagittal and coronal reformatted images were obtained on the technologist's workstation. DLP: 350 mGy-cm. FINDINGS: Dependent changes are noted at both lung bases and appear new since the previous study. A 2.3 cm indeterminate lesion is again noted in the right lobe of the liver. The spleen, pancreas, adrenals, kidneys, and gallbladder continue to enhance normally and demonstrate no discrete anatomic abnormality. An ileocecal anastomosis is again noted in the right lower quadrant. Nondilated loops of large and small bowel are otherwise fairly unremarkable. Enteric contrast has reached the mid jejunum with relative decompression of more distal ileal loops. The prostate, seminal vesicles, and bladder are normal in appearance. Small retroperitoneal lymph nodes are unchanged. IMPRESSION: Stable CT appearance of the abdomen, demonstrating no acute intra-abdominal process.
--- NOTE | 2016-10-30 14:35 | NUR ---
AWAITING DISPO/POC. Informed waiting has been performed.
--- NOTE | 2016-10-30 14:54 | NUR ---
DR MUKHERJEE IN TO REVIEW POC. ANTICIPATE ADMISSION.
--- NOTE | 2016-10-30 14:54 | NUR ---
SURGICAL STU STRINGER AT BEDSIDE.
--- NOTE | 2016-10-30 15:26 | Admission Core Measures ---
Admission Meds I reviewed the following Meds: Current Medications Sig/Tawny Start time Last Medication Dose Stop Time Status Admin Acetaminophen 1,000 MG Q6P PRN 10/30 1530 UNVr (Ofirmev) N/A 1 UNIT (No Carrier) Heparin Sodium 5,000 UNIT Q8 10/30 2200 UNVr (Porcine) Hydromorphone HCl 1 MG Q4-6 PRN PRN 10/30 1530 UNVr (Dilaudid) Hydromorphone HCl 0.6 MG Q4-6 PRN PRN 10/30 1530 UNVr (Dilaudid) Hydromorphone HCl 0.2 MG Q4P PRN 10/30 1530 AC (Dilaudid) Ketorolac 15 MG Q8P PRN 10/30 1530 AC Tromethamine (Toradol) Ondansetron HCl 4 MG Q6P PRN 10/30 1530 AC (Zofran) Pantoprazole Sodium 40 MG DAILY 10/30 1522 UNVr (Protonix) Potassium Chloride 20 MEQ Q8H 10/30 1530 UNVr (KCl 20MEQ in D5/ N.S. 1000 ML bag) Dextrose/Sodium 1,000 ML Chloride (D5-Normal Saline) Acute Coronary Syndrome Inclusion Criteria ACS Diagnosis No Inpatient Core Measures LDL Reminder: If No, please order W/I first 24hr of stay Congestive Heart Failure Inclusion Criteria CHF Diagnosis No Cerebrovascular accident Inclusion Criteria CVA/TIA Diagnosis No Inpatient Core Measures Bedside Swallow Eval Reminder: If BSE failed, place ST order Antithrombotic Reminder: Order Antithrombotic Medication by end of day 2 Antithrombotic Reminder: Document Reason Antithrombotic Not ordered by end of day 2 AFIB/Flutter Reminder: If Present, add to problem list AFIB/Flutter Reminder: Order Anticoag Medication for pts with AFIB/Flutter Atherosclerosis Reminder: If Present, add to problem list LDL Reminder: If No, please order W/I first 24hr of stay PT Order Reminder: If No, please order Venous thromboembolism Inpatient Core Measures VTE Risk Factors: Inflammatory bowel Dx VTE Prophylaxis Ordered Inpt Mech & Pharm No Mech VTE prophylaxis d/t No contraindications No VTE Pharm Prophylaxis d/t No contraindications Inclusion Criteria - Per Current guidelines, there needs to be overlap - treatment for the first 5 days of Warfarin therapy. - Parenteral Anticoagulation (IV or SC) needs to be - given along with Warfarin therapy. VTE Diagnosis No VTE Type NONE VTE Confirmed by (Test) NONE Problem List As ranked by this Provider includes Assessment & Plan 1. Abdominal pain 2. Crohn disease 3. Asthma HOME MEDS Home Med List Adalimumab (Humira Pen) 40 MG/0.8 ML PEN.IJ.KIT 1 SYR SC Q2W UNKNOWN ( Reported) Albuterol Sulfate (Proair Hfa) 90 MCG HFA.AER.AD 2 PUF INH Q4-6 PRN PRN BREATHING PROBLEMS (Reported) Cholestyramine (With Sugar) (Cholestyramine Packet) 4 GRAM POWD.PACK 1 PAC PO DAILY UNKNOWN (Reported) Desipramine HCl 50 MG TABLET 1 TAB PO QPM UNKNOWN (Reported) Dicyclomine HCl 10 MG CAPSULE 1 CAP PO Q6P PRN GI (Reported) Olopatadine HCl (Patanol) 0.1 % DROPS 1 GTT OPH BID ALLERGIES (Reported) Ondansetron (Zofran Odt) 4 MG TAB.RAPDIS 1 TAB SL TID PRN NAUSEA/VOMITING
--- NOTE | 2016-10-30 15:33 | History & Physical Pre-Op ---
KARISSA ATWOOD 10/30/16 1527: General Information and HPI MD Statement: I have seen and personally examined SUSHMA OCAMPO and documented this H&P. The patient is a 26 year old M who presented with a patient stated chief complaint of [ABDOMINAL PAIN]. Source of Information: patient History of Present Illness: This 26 year old white male with known crohn's disease, known to from previous ileocectomy and revision, presents with abdominal pain that has been going on for weeks to months, but became severe yesterday. Reports nausea without vomiting. Subjective chills and sweats. Low grade fever appreciated in the ED today. He states his most recent colonoscopy by his GI doctor did not show active Crohns related flare. He believes his abdominal pain is adhesion related. Although he has had issues with diarrhea in the past, he reports "hard stools" and constipation in the last few days, and has continued to take his usual cholestyramine. Allergies/Medications Allergies: Coded Allergies: NO KNOWN ALLERGIES (05/23/13) Home Med list Adalimumab (Humira Pen) 40 MG/0.8 ML PEN.IJ.KIT 1 SYR SC Q2W UNKNOWN ( Reported) Albuterol Sulfate (Proair Hfa) 90 MCG HFA.AER.AD 2 PUF INH Q4-6 PRN PRN BREATHING PROBLEMS (Reported) Cholestyramine (With Sugar) (Cholestyramine Packet) 4 GRAM POWD.PACK 1 PAC PO DAILY UNKNOWN (Reported) Desipramine HCl 50 MG TABLET 1 TAB PO QPM UNKNOWN (Reported) Dicyclomine HCl 10 MG CAPSULE 1 CAP PO Q6P PRN GI (Reported) Fluticasone Propionate/Salme (Advair Hfa 230-21 Mcg Inhaler) 230 MCG-21 MCG/ ACTUATION HFA.AER.AD BREATHING PROBLEMS (Reported) Olopatadine HCl (Patanol) 0.1 % DROPS 1 GTT OPH BID ALLERGIES (Reported) Ondansetron (Zofran Odt) 4 MG TAB.RAPDIS 1 TAB SL TID PRN NAUSEA/VOMITING Past History Medical History Neurological: NONE EENT: NONE Cardiovascular: NONE Respiratory: asthma Gastrointestinal: Crohn's disease, PERFORATION Hepatic: NONE Renal: NONE Musculoskeletal: NONE Psychiatric: NONE Endocrine: NONE Blood Disorders: NONE Cancer(s): NONE HOG KILLER/Reproductive: NONE Surgical History Pertinent Surgical History: hernia repair-incisional, RECTAL FISTULA, ILEECTOMY, ABDOMINAL MESH, ileocectomy Past Family/Social History Family History Relations & Conditions if any Relation not specified for: FH: inflammatory bowel disease Psychosocial History Smoking Status: Never Smoked ETOH Use: denies use Illicit Drug Use: denies illicit drug use Employment History Employment: Employed 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, 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 Review of Systems Review of Systems: admits: abdominal pain, nausea, constipation, chills/sweats denies: vomiting, bloody stools, shortness of breath, chest pain, dizziness Exam & Diagnostic Data Last 24 Hrs of Vital Signs/I&O Vital Signs Date Time Temp Pulse Resp B/P Pulse O2 O2 Flow FiO2 Ox Delivery Rate 10/30 1454 100.3 128 22 123/78 96 Room Air 10/30 1313 100.1 138 18 125/59 95 Room Air 10/30 1157 100.8 10/30 1150 100.8 130 20 118/67 100 Room Air 10/30 1135 100.3 10/30 1046 100.3 120 20 121/78 96 Room Air 10/30 0919 98.1 154 16 115/87 99 Room Air Intake & Output 10/30 1600 10/30 0800 10/30 0000 Intake Total 2000 Output Total Balance 2000 Intake, IV 2000 Patient 178 lb Weight Physical Exam: General - alert & oriented x 3. uncomfortable. no acute distress. Lungs - clear bilaterally. no w/r/r. Cardiac - s1s2. tachycardic. Abdomen - soft. active bowel sounds appreciated. right lower quadrant tenderness present with some left lower quadrant tenderness. midline scar appreciated. Extremities - warm bilaterally. no c/c/e. calves soft and nontender b/l Neuro - no focal deficits. speech smooth and coordinated. Last 24 Hrs of Labs/Matt: Laboratory Tests 10/30/16 1210: Urine Color YEL, Urine Clarity CLEAR, Urine pH 6.0, Ur Specific [place] 1.015, Urine Protein NEG, Urine Ketones NEG, Urine Nitrite NEG, Urine Bilirubin NEG, Urine Urobilinogen 0.2, Ur Leukocyte Esterase NEG, Ur Microscopic EXAM NOT REQUIRED, Urine Hemoglobin NEG, Urine Glucose NEG 10/30/16 0945: Anion Gap 8, Estimated GFR > 60, BUN/Creatinine Ratio 9.2, Glucose 88, Calcium 9.6, Total Bilirubin 0.7, AST 26, ALT 50, Alkaline Phosphatase 107, Total Protein 8.5 H, Albumin 4.7, Globulin 3.8, Albumin/Globulin Ratio 1.2, Amylase 51, Lipase 40, CBC w Diff NO MAN DIFF REQ, RBC 5.14, MCV 86.2, MCH 29.7, RDW 13.1, MPV 7.2 L, Gran % 45.0, Lymphocytes % 35.7, Monocytes % 14.2 H, Eosinophils % 4.5, Basophils % 0.6, Absolute Granulocytes 2.1, Absolute Lymphocytes 1.7, Absolute Monocytes 0.7 H, Absolute Eosinophils 0.2, Absolute Basophils 0, PUBS MCHC 34.5 Diagnostic Data Other Results EXAMINATION: CT ABDOMEN AND PELVIS WITH CONTRAST CLINICAL INFORMATION: 26-year-old man with abdominal pain. History of Crohn's disease. COMPARISON: 10/18/[address] TECHNIQUE: Multidetector volumetric imaging was performed of the abdomen and pelvis after oral and the IV administration of 96 mL of Optiray 320 intravenous contrast. Sagittal and coronal reformatted images were obtained on the technologist's workstation. DLP: 350 mGy-cm. FINDINGS: Dependent changes are noted at both lung bases and appear new since the previous study. A 2.3 cm indeterminate lesion is again noted in the right lobe of the liver. The spleen, pancreas, adrenals, kidneys, and gallbladder continue to enhance normally and demonstrate no discrete anatomic abnormality. An ileocecal anastomosis is again noted in the right lower quadrant. Nondilated loops of large and small bowel are otherwise fairly unremarkable. Enteric contrast has reached the mid jejunum with relative decompression of more distal ileal loops. The prostate, seminal vesicles, and bladder are normal in appearance. Small retroperitoneal lymph nodes are unchanged. IMPRESSION: Stable CT appearance of the abdomen, demonstrating no acute intra-abdominal process. DICTATED BY: SARAH LOVE MD DATE/TIME DICTATED:10/30/161412 EQUIPMENT MECHANIC:LETITIA DATE/TIME TRANSCRIBED:10/30/161412 CONFIDENTIAL, DO NOT COPY WITHOUT APPROPRIATE AUTHORIZATION. Assessment/Plan Assessment/Plan: This 26 year old white male with known hx crohns disease s/p ileocectomy presents with acute on chronic abdominal pain, ?crohns flare vs adhesions keep npo / ivf pain medication hep sc - dvt ppx will d/w re: home meds. likely hold cholestyramine. humira not available inpatient unless he brings his in from home. ?last dose (o1nlggp) no GI consult at this time. to speak with his disposal man patient understands & agrees with plan As Ranked By This Provider Problem List: 1. Crohn disease 2. Asthma 3. Abdominal pain JULIETA SILVESTREJULY 10/30/16 1952: Attending MD Review Statement Attending Statement Attending Assessment/Plan: Patient examined, clinical data reviewed, CT scan images and report reviewed. Patient discussed with PA staff Agree with above assessment and plan Additional comment: This is a gentleman who is status post ileocolectomy for medical refractory Crohn's disease. He later had to have revision of his ileocolonic anastomosis for internal hernia. Sometime after this he had repair of ventral hernia. He has now near chronic abdominal pain and has had extensive workup by his GI doctor including: Upper endoscopy , colonoscopy , CT scans and MR enteroscopy. No source of this abdominal pain has been identified. GI does not believe he has persistent or recurrent Crohn's disease. He has had no evidence of bowel obstruction, diverticulitis, or cholecystitis. He was scheduled for an elective HIDA scan tomorrow. Yesterday he developed severe dominant pain with fever he was instructed to go to the emergency room. Laboratory evaluation is essentially normal, CT scan of the abdomen and pelvis appears no active abdominal disease. Patient has persistent pain which is migrating. Heart in the left upper quadrant but is now more right lower quadrant. Physical exam he appears uncomfortable, is mild right lower quadrant tenderness but no rebound tenderness. My impression is this is a gentleman with history of Crohn's disease who has abdominal pain of unclear etiology. CT scan reveals no acute disease and he does not have an abdominal exam consistent with acute surgical disease. He will be admitted and placed on bowel rest. We will perform IV resuscitation and serial abdominal exams. We will proceed with his schedule HIDA scan tomorrow. If he fails to improve consideration will be given to performing diagnostic laparoscopy
--- NOTE | 2016-10-30 15:54 | NUR ---
BED ASSIGNMENT [id number]
--- NOTE | 2016-10-30 17:03 | NUR ---
GOING TO ROOM 224 BED 2.
--- NOTE | 2016-10-30 17:07 | NUR ---
REPORT TO DEE BOYER ON 2NA.
--- NOTE | 2016-10-30 17:32 | NUR ---
DR RENDON AT BEDSIDE.
--- NOTE | 2016-10-30 17:39 | NUR ---
MEDICATED WITH IV TORADOL FOR FEVER.
--- NOTE | 2016-10-30 17:40 | NUR ---
PT TRANSPORTED TO FLOOR VIA STRETCHER. ALL PAPERWORK AND BELONGINGS SENT. CLINICAL STATUS UNCHANGED.
[2016-10-30 18:01] VITALS: BP 118/60
[2016-10-30 22:55] VITALS: BP 130/80
[2016-10-31] VITALS (8 sets, daily range): BP systolic 102–130; BP diastolic 66–80
--- NOTE | 2016-10-31 07:48 | PN- General Surgery ---
See Addendum Subjective Subjective: NAEO. Patient without new c/o. Symptoms are unchanged overnight. Still c/o the same abdominal pain. NPO with nausea but no emesis. +flatus, no BM since Friday. OOB and ambulating. Voiding spontaneously. Denies CP/SOB. Objective Vital Signs and I&Os Vital Signs Date Time Temp Pulse Resp B/P Pulse O2 O2 Flow FiO2 Ox Delivery Rate 10/31 0639 100.3 120 20 120/80 91 Room Air 10/30 2255 99.3 119 20 130/80 93 Room Air 10/30 1801 99.5 118 20 118/60 93 Room Air 10/30 1700 101.1 120 22 120/80 98 Room Air 10/30 1454 100.3 128 22 123/78 96 Room Air 10/30 1313 100.1 138 18 125/59 95 Room Air 10/30 1157 100.8 10/30 1150 100.8 130 20 118/67 100 Room Air 10/30 1135 100.3 10/30 1046 100.3 120 20 121/78 96 Room Air 10/30 0919 98.1 154 16 115/87 99 Room Air Intake & Output 10/31 1600 10/31 0800 / 0000 10/30 1600 10/30 0800 10/30 0000 Intake Total 9207 462 1806 Output Total Balance 9467 191 2188 Intake, IV 3938 033 0944 Patient 160 lb 178 lb Weight Physical Exam: General: NAD, comfortable, A&Ox3 Chest: NRD, breathing comfortably on room air. RRR. Abdomen: soft, nondistended. 6-7 out of 10 pain on palpation to right flank as well as suprapubic and left lower quadrant regions. No masses appreciated. + Bowel sounds x4 quadrants Ext: No calve swelling/TTP, neurovascularly intact bilateral lower extremities Current Medications: Current Medications Sig/[place] Start time Last Medication Dose Route Stop Time Status Admin Acetaminophen 1,000 MG Q6P PRN 10/30 1530 AC 10/30 N/A 1 UNIT IV 2102 Acetaminophen 1,000 MG ONCE ONE 10/30 1145 DC 10/30 IV 10/30 1146 1135 Acetaminophen 0 .STK-MED ONE 10/30 1132 DC IV Albuterol Sulfate 2 PUF Q4P PRN 10/30 1545 AC INH Budesonide/ 2 PUF BID 10/30 2200 AC 10/30 Formoterol Fumarate INH 2058 Heparin Sodium 5,000 UNIT Q8 10/30 2200 AC 10/30 (Porcine) SC 205 Hydromorphone HCl 1 MG Q3P PRN 10/31 0800 AC IV Hydromorphone HCl 0.5 MG Q3P PRN 10/31 0800 AC IV Hydromorphone HCl 0 .STK-MED ONE 10/30 1547 DC .ROUTE Hydromorphone HCl 1 MG Q4-6 PRN PRN 10/30 1530 DC 10/31 IV 0416 Hydromorphone HCl 0.6 MG Q4-6 PRN PRN 10/30 1530 DC 10/30 IV 1851 Hydromorphone HCl 0.2 MG Q4P PRN 10/30 1530 DC IV Hydromorphone HCl 0 .STK-MED ONE 10/30 1016 DC .ROUTE Hydromorphone HCl 0.5 MG ONCE ONE 10/30 1015 DC 10/30 IV 10/30 1016 1015 Ketorolac 0 .STK-MED ONE 10/30 1737 DC Tromethamine .ROUTE Ketorolac 15 MG Q8P PRN 10/30 1530 AC 10/31 Tromethamine IV 0257 Ondansetron HCl 4 MG Q6P PRN 10/30 1530 AC 10/31 IV 0126 Ondansetron HCl 0 .STK-MED ONE 10/30 1004 DC .ROUTE Ondansetron HCl 4 MG ONCE ONE 10/30 1000 DC 10/30 IV 10/30 1001 1005 Pantoprazole Sodium 0 .STK-MED ONE 10/30 1547 DC IV Pantoprazole Sodium 40 MG DAILY 10/30 1522 AC 10/30 IV 1550 Potassium Chloride 20 MEQ Q8H 10/30 1600 AC 10/30 Dextrose/Sodium 1,000 ML IV 2359 Chloride Potassium Chloride 20 MEQ Q8H 10/30 1530 DC 10/30 Dextrose/Sodium 1,000 ML IV 1627 Chloride Promethazine HCl 25 MG ONCE ONE 10/30 1215 DC 02/ IV 10/30 1216 1150 Promethazine HCl 0 .STK-MED ONE 10/30 1151 DC .ROUTE Sodium Chloride 1,000 ML BOLUS ONE 10/30 1000 DC 10/30 IV 10/30 1059 1015 Sodium Chloride 1,000 ML BOLUS ONE 10/30 0945 DC 10/30 IV 10/30 1044 0950 Results Last 48 Hours of Labs: Laboratory Tests 10/31 10/30 0705 1210 Chemistry Sodium Pending Potassium Pending Chloride Pending Carbon Dioxide Pending Anion Gap Pending BUN Pending Creatinine Pending BUN/Creatinine Ratio Pending Glucose Pending Phosphorus Pending Magnesium Pending Hematology CBC w Diff Pending WBC Pending RBC Pending Hgb Pending Hct Pending MCV Pending MCH Pending RDW Pending Plt Count Pending MPV Pending PUBS MCHC Pending Urines Urine Color (YEL,AMB,STR) YEL Urine Clarity (CLEAR) CLEAR Urine pH (5.0 - 8.0) 6.0 Ur Specific [place] (1.001 - 1.035) 1.015 Urine Protein (NEG,<30 MG/DL) NEG Urine Ketones (NEG) NEG Urine Nitrite (NEG) NEG Urine Bilirubin (NEG) NEG Urine Urobilinogen (0.1 - 1.0 EU/dl) 0.2 Ur Leukocyte Esterase (NEG) NEG Ur Microscopic EXAM NOT REQUIRED Urine Hemoglobin (NEG) NEG Urine Glucose (N MG/DL) NEG 10/30 0945 Chemistry Sodium (137 - 145 mmol/L) 139 Potassium (3.5 - 5.1 mmol/L) 4.3 Chloride (98 - 107 mmol/L) 101 Carbon Dioxide (22 - 30 mmol/L) 30 Anion Gap (5 - 16) 8 BUN (9 - 20 mg/dL) 11 Creatinine (0.7 - 1.2 mg/dL) 1.2 Estimated GFR (>60 ml/min) > 60 BUN/Creatinine Ratio (7 - 25 %) 9.2 Glucose (65 - 99 mg/dL) 88 Calcium (8.4 - 10.2 mg/dL) 9.6 Total Bilirubin (0.2 - 1.3 mg/dL) 0.7 AST (17 - 59 U/L) 26 ALT (21 - 72 U/L) 50 Alkaline Phosphatase (< 127 U/L) 107 Total Protein (6.3 - 8.2 g/dL) 8.5 H Albumin (3.5 - 5.0 g/dL) 4.7 Globulin (1.9 - 4.2 gm/dL) 3.8 Albumin/Globulin Ratio (1.1 - 2.2 %) 1.2 Amylase (30 - 110 U/L) 51 Lipase (23 - 300 U/L) 40 Hematology CBC w Diff NO MAN DIFF REQ WBC (4.8 - 10.8 /CUMM) 4.7 L RBC (4.70 - 6.10 /CUMM) 5.14 Hgb (14.0 - 18.0 G/DL) 15.3 Hct (42 - 52 %) 44.3 MCV (80.0 - 94.0 FL) 86.2 MCH (27.0 - 31.0 PG) 29.7 RDW (11.5 - 14.5 %) 13.1 Plt Count (130 - 400 /CUMM) 203 MPV (7.4 - 10.4 FL) 7.2 L Gran % (42.2 - 75.2 %) 45.0 Lymphocytes % (20.5 - 51.1 %) 35.7 Monocytes % (1.7 - 9.3 %) 14.2 H Eosinophils % (0 - 5 %) 4.5 Basophils % (0.0 - 2.0 %) 0.6 Absolute Granulocytes (1.4 - 6.5 /CUMM) 2.1 Absolute Lymphocytes (1.2 - 3.4 /CUMM) 1.7 Absolute Monocytes (0.10 - 0.60 /CUMM) 0.7 H Absolute Eosinophils (0.0 - 0.7 /CUMM) 0.2 Absolute Basophils (0.0 - 0.2 /CUMM) 0 PUBS MCHC (33.0 - 37.0 G/DL) 34.5 Assessment/Plan Assessment/Plan 26yo M with hx of crohns dz with persistent abdominal pain. AVSS, patient stable at this time. - npo - ivf - pain control - PRN zofran - OOB and ambulate - I/O's - sc heparin and ALPS for DVT PPx - f/u a.m. labs - f/u HIDA scan - Will d/w attending Core Measures/Miscellaneous Venous Thromboembolism VTE Risk Factors: No Risk Factors VTE Contraindications: No Contraindications VTE Prophylaxis Ordered Inpt Mech & Pharm VTE Diagnosis: No VTE Type: NONE VTE Confirmed by (Test): NONE Beta Jose Is Beta Jose a Home Med? No Antibiotics Is Patient on Antibiotics? No
[2016-10-31 08:52] LABS: ABSOLUTE BASOPHIL COUNT 0 /CUMM (0.0-0.2); ABSOLUTE EOSINOPHIL COUNT 0 /CUMM (0.0-0.7); ABSOLUTE GRANULOCYTE CT 0.8 /CUMM (1.4-6.5); ABSOLUTE LYMPH COUNT 1.9 /CUMM (1.2-3.4); ABSOLUTE MONOCYTE COUNT 0.6 /CUMM (0.10-0.60); BASOPHIL % 0.6 % (0.0-2.0); EOSINOPHIL % 1.3 % (0-5); GRANULOCYTE % 23.8 % (42.2-75.2); HEMATOCRIT 40.8 % (42-52); MEAN CORPUSCULAR HGB 30.2 PG (27.0-31.0); MEAN CORPUSCULAR HGB CONC 34.7 G/DL (33.0-37.0); MEAN CORPUSCULAR VOLUME 87.2 FL (80.0-94.0); MEAN PLATELET VOLUME 8.2 FL (7.4-10.4); PLATELET COUNT 158 /CUMM (130-400); RBC DISTRIBUTION WIDTH 13.2 % (11.5-14.5); RED BLOOD CELL CT 4.67 /CUMM (4.70-6.10); WHITE BLOOD CELL COUNT 3.4 /CUMM (4.8-10.8)
--- NOTE | 2016-10-31 12:42 | NUCLEAR MEDICINE REPORT ---
EXAMINATION: BILIARY TRACT IMAGING STUDY CLINICAL INDICATION: 26-year-old male presented with abdominal pain, fever history of Crohn's disease, status post resection of the ileum and cecum. Suspected acute cholecystitis. COMPARISON: CT of the abdomen and pelvis done on 10/30/2016. TECHNIQUE: Scintillation camera images were obtained over the abdomen for an observation of 60 minutes following the intravenous administration of 4.9 millicuries technetium 99m <Choletec>. FINDINGS: There is good concentration of activity in the liver by 5 minutes post injection. Biliary activity is well visualized by 10 minutes, and there is good visualization of small bowel activity by 23 minutes. The gallbladder is well visualized by 15 minutes. IMPRESSION: Normal biliary scan. Visualization of the gallbladder is evidence of a patent cystic duct and strong evidence against the diagnosis of acute cholecystitis. The common bile duct is patent. Liver function appears normal..
--- NOTE | 2016-10-31 13:42 | NUR ---
PATIENT O2 SAT 87% ON ROOM AIR, VITAL SIGNS FOLLOWS B/P 110/70, HEART RATE 110 RADIAL, NAIL BEDS APPEAR BLUE, TEMP 99.2 , NO SIGNS OF DISTRESS, NO REPORTS OF SOB OR PAPITATION, PATIENT PLACED ON 2L 02 NC, AND IST GIVEN, SAT NOW 97%, STU HICKEY NOTIFIED, SHE WILL RELAY INFORMATION TO DR RENDON, WILL CONTINUE TO MONITOR.
--- NOTE | 2016-10-31 17:19 | NUR ---
PT DOWN TO OR AT THIS TIME VIA STRETCHER. PT A/V/OX3. ON 2LNC SATS 95%. HR 116. BP 112/66. RR 18. T 99.0. PT UNABLE TO VOID HAIR SALON MANAGER TO OR. SURG PA AND OR AWARE OF THIS. PRE OP CHECKLIST COMPLETED, PRE OP SCRUB COMPLETED. WILL CONTINUE TO MONITOR.
--- NOTE | 2016-10-31 19:54 | Operative Report ---
Operative/Inv Procedure Report Surgery Date: 10/31/16 Name of Procedure: Diagnostic laparoscopy Laparoscopic lysis of adhesions lasting almost 2 hours Pre-Operative Diagnosis: Abdominal pain of unclear etiology Post-Operative Diagnosis: Extensive abdominal adhesions Estimated Blood Loss: scant Surgeon/Regional Training Manager: JULY RENDON JR, DO, Dr. -assistant professor of religion for portion of the procedure when the PA was unavailable Fausto Vallejo PA - assistant professor of religion for portion of the procedure Anesthesia: general endotracheal tube Monitors: Per routine IV Fluids: 3 L of crystalloid Implants: None Urine Output: Excellent Drains: None Specimens: None Complications: None Condition: Good Operative Indication: This is a 26-year-old gentleman with a long-standing patient of mine. He has a history of Crohn's disease and is status post ileocolectomy for this. He later had to have a revision of his ileocolonic anastomosis for internal hernia. Sometime after this he had a laparoscopic repair of ventral hernia Over the last few months the patient has been having near chronic abdominal pain and change in bowel function and intolerance to diet. He has had extensive workup rectum by his bench worker binding who is in IBD specialist which has included: Upper endoscopy, colonoscopy, CT scan of abdomen and pelvis an MR enterography. No clear source of his pain could be identified. And it was the opinion of his gastric urologist that this was not a Crohn's flare. We discussed doing an elective diagnostic laparoscopy. However, patient experienced worsening abdominal pain and fever and nausea so he was sent to the emergency room. At the time of his admission he was tachycardic and febrile. He did not have leukocytosis. CT scan of the abdomen and pelvis did not reveal acute abdominal cavity disease. He was tender on exam but did not have kasey peritonitis. He was admitted placed on bowel rest given IV resuscitation. His abdominal pain worsened overnight the point where he was requiring narcotic pain medicine. He began to spike fevers to almost 103 degrees. He developed a leukocytosis and his tachycardia got worse despite IV resuscitation. His abdominal pain remained tender but without kasey peritonitis. After discussion with the patient we decided to proceed with diagnostic laparoscopy see if we can identify the source of fever and pain Operative/Procedure Note Note: Was taken down to the operating room. IV antibiotics were administered prior to incision. He was placed on the operating room table, underwent induction of general anesthesia and placement of endotracheal tube. A Summers catheter was placed. Disease performed bilateral tap blocks. The abdomen was prepped and draped in usual fashion. Because of the mesh in the central abdomen I decided to place the port in the left upper quadrant. A Kessler port was placed here. The abdomen was insufflated to 15 mmHg. And the camera was inserted. Patient had abundant adhesions to the anterior midline mostly from the transverse colon and greater omentum. Wore some small bowel loops adherent to each other and to the anterior midline. Additional 5 mm ports were placed in the left lower quadrant, suprapubic area and right lower quadrant. Extensive lysis of adhesions was performed partly with sharp dissection and partly with the LigaSure device. The spleen was identified and appeared normal. The anterior and superior surface of the liver appeared normal. The stomach and first portion of the duodenum appeared normal. The gallbladder appeared normal. Small bowel appeared normal with no obvious evidence of Crohn's disease. The ileocolonic anastomosis appeared normal. The colon was distended with stool but had no evidence of inflammation or ischemia. The pelvis also appeared normal. At this point I felt that a negative laparoscopy and decided to prepare for closure. I was one bleeding point identified on the greater omentum where it was adherent to the anterior abdominal wall. This was partly told with the LigaSure device, and 2 laparoscopic 5 mm were used to obtain complete control. The 5 mm ports were removed under direct visualization of the laparoscope. The fascia at the left upper quadrant 12 mm near Kessler port was closed with 0 Vicryl [id number] suture. All skin incisions were closed with 4-0 subcuticular Vicryl. The abdomen was cleansed and dried. Mastisol Steri-Strips were applied to the incisions. Sterile Band-Aids were applied to the incisions. The patient was explained in the operating room and tolerated the procedure well. His tachycardia and proved significantly during the operation with fluid resuscitation. At the end was operational needle sponges and measurements were accounted for Findings: No acute abdominal cavity disease Abundant abdominal cavity adhesions Discharge Disposition: PACU CC: AKUA PACK,JOAQUIM
--- NOTE | 2016-10-31 21:10 | NUR ---
PT ARRIVED BACK TO FLOOR VIA STRETCHER AT 2109. PT A/V/OX3. ON 2LNC. RECORDING STUDIO SET UP WORKER PUMP WITH DILAUDID 1:[address] IN [address]. PT EDUCATED ON RECORDING STUDIO SET UP WORKER PUMP. PT HAS 4 BANDAGES TO ABD, INTACT. PT C/O PAIN 03/08. BOND IN PLACE DRAINING CLEAR & YELLOW URINE TO GRAVITY. VSS. NO COMPLAINTS AT THIS TIME. WILL CONTINUE TO MONITOR.
--- NOTE | 2016-10-31 21:10 | NUR ---
PTS EVENTS MANAGER PUMP ATTEMPS/INJECTIONS OF NUMBERS IN 300-400'S ATTEMPTS AND INJECTIONS. EVENTS MANAGER STARTED AT 2024 IN PACU. THIS RN HAD TO ERASE HX OF ATTEMPTS/INJECTIONS. REPORT GIVEN TO NEXT SHIFT RN. WILL CONTINUE TO MONITOR.
--- NOTE | 2016-10-31 21:37 | CT SCAN REPORT ---
EXAMINATION: CT ANGIOGRAM OF THE CHEST WITH AND WITHOUT CONTRAST (CT PULMONARY ANGIOGRAM FOR PE) CLINICAL INFORMATION: Symptoms: DEAST AND TACHY
COMPARISON: No pertinent prior studies are available for comparison. TECHNIQUE: Prior to contrast administration, noncontrast localization images were obtained. Subsequently, multidetector volumetric imaging was performed from the thoracic inlet to below the diaphragms following the administration of 95 mL Optiray 320 intravenous contrast. No contrast reaction reported Sagittal, coronal, and MIP oblique sagittal reformatted images were obtained on the CT workstation, uploaded to PACS, and reviewed. Total exam dose-length product 439.92 mGy-cm FINDINGS: QUALITY OF STUDY/CONTRAST BOLUS: Satisfactory. PULMONARY ARTERIES: No central or segmental pulmonary emboli. THORACIC AORTA: No aneurysm or dissection. LUNG: Bibasilar atelectasis consolidation at dependent lung at lower lobes. PLEURA: No pleural effusion or pneumothorax. MEDIASTINUM: Normal heart size. No pericardial effusion. No hilar or mediastinal lymphadenopathy. No evidence of septal bowing or right heart strain. CHEST WALL/AXILLA: No axillary or internal mammary lymphadenopathy. OSSEOUS STRUCTURES: No acute or suspicious osseous abnormality. UPPER ABDOMEN: Unremarkable. No reflux of contrast into the hepatic veins to suggest elevated right heart pressures. IMPRESSION: 1. No evidence of pulmonary embolism. 2. Bibasilar infiltrate/atelectasis at the dependent lung bilaterally. VTE: negative
--- NOTE | 2016-10-31 22:04 | PN- General Surgery ---
Subjective Subjective: The patient was seen this evening postoperatively. He reports feeling some mild incisional soreness but is otherwise relatively comfortable. He denies any nausea has no other complaints at the current time. Objective Vital Signs and I&Os Vital Signs Date Time Temp Pulse Resp B/P Pulse O2 O2 Flow FiO2 Ox Delivery Rate 10/31 2109 97.4 104 18 120/80 10/31 1613 99.0 116 18 112/66 95 Nasal 2.0L Cannula 10/31 1600 95 Nasal 2.0L Cannula 10/31 1429 99.4 120 20 130/78 92 10/31 0942 102.5 10/31 0800 95 Nasal 2.0L Cannula 10/31 0639 100.3 120 20 120/80 91 Room Air 10/30 2255 99.3 119 20 130/80 93 Room Air Intake & Output 10/31 1600 10/31 0800 10/31 0000 10/30 1600 10/30 0800 10/30 0000 Intake Total 1000 9534 455 2642 Output Total 500 Balance 500 3440 424 9315 Intake, IV 1000 7235 065 1832 Intake, Oral 0 Output, Urine 500 Patient 160 lb [address] of the chest was negative for pulmonary embolism or any other significant findings Physical Exam: Gen.: Sleepy but easily arousable and in no obvious distress Skin: Warm and dry Cardiac: S1 and S2 tachycardic but regular Pulmonary: Bilateral breath sounds were equal and decreased at bases Abdomen: Soft, mildly distended, appropriate incisional tenderness, bowel sounds positive. Port sites are clean, dry, and intact. Extremities: Bilateral lower extremities are warm without calf tenderness or significant edema. Assessment/Plan Assessment/Plan Assessment: 26-year-old male status post negative exploratory laparotomy. Postoperatively patient is progressing as expected and his pain is under adequate control. Plan: The patient be kept nothing by mouth with IV hydration SERVICES PROGRAM MANAGER for pain control GI and DVT prophylaxis Follow-up morning laboratory studies Will possibly start a bowel regimen to tomorrow Out of bed and ambulate TRC Core Measures/Miscellaneous Venous Thromboembolism VTE Risk Factors: No Risk Factors VTE Contraindications: No Contraindications VTE Prophylaxis Ordered Inpt Mech & Pharm VTE Diagnosis: No VTE Type: NONE VTE Confirmed by (Test): NONE Beta Jose Is Beta Jose a Home Med? No Antibiotics Is Patient on Antibiotics? No
[2016-11-01] VITALS (14 sets, daily range): BP systolic 108–130; BP diastolic 60–80
[2016-11-01 08:24] LABS: ABSOLUTE BASOPHIL COUNT 0 /CUMM (0.0-0.2); ABSOLUTE EOSINOPHIL COUNT 0 /CUMM (0.0-0.7); ABSOLUTE GRANULOCYTE CT 2.1 /CUMM (1.4-6.5); ABSOLUTE LYMPH COUNT 1.1 /CUMM (1.2-3.4); ABSOLUTE MONOCYTE COUNT 0.3 /CUMM (0.10-0.60); BASOPHIL % 0.2 % (0.0-2.0); EOSINOPHIL % 0 % (0-5); HEMATOCRIT 40.2 % (42-52); MEAN CORPUSCULAR HGB 29.8 PG (27.0-31.0); MEAN CORPUSCULAR HGB CONC 34.5 G/DL (33.0-37.0); MEAN CORPUSCULAR VOLUME 86.5 FL (80.0-94.0); MEAN PLATELET VOLUME 7.8 FL (7.4-10.4); PLATELET COUNT 173 /CUMM (130-400); RBC DISTRIBUTION WIDTH 12.9 % (11.5-14.5); RED BLOOD CELL CT 4.64 /CUMM (4.70-6.10); WHITE BLOOD CELL COUNT 3.5 /CUMM (4.8-10.8)
[2016-11-01 09:03] LABS: GRANULOCYTE % 60.4 % (42.2-75.2)
--- NOTE | 2016-11-01 09:56 | PN- General Surgery ---
Surgical Brief Attending Note Brief Attending Note: Patient had diagnostic laparoscopy for worsening abdominal pain and fever and tachycardia and leukocytosis. Extensive lysis of adhesions performed otherwise negative exploration. Patient feeling somewhat better today. Has some tenderness at Kessler port incision. Heart rate improved, he made excellent urine overnight Patient appears to be profoundly constipated. Plan: Start clear liquids today DC Summers catheter Infectious disease consult Start bowel regimen: Today-Fleet enema 1, mineral oil 30 mL 1, Colace 100 mg 3 times a day. Tomorrow- one full Bottle magnesium citrate
--- NOTE | 2016-11-01 11:11 | NUR ---
PATIENT OOB TO CHAIR. BECAME LIGHTHEADED AND NAUSEOUS. SLIGHTLY DIAPHERETIC. BP 160/90, HR 114. RR 20. O2 SAT ON RA 95. PATIENT REPORTED ABD PAIN 03/08. PA CARI ON FLOOR AND MADE AWARE. PER PA CONTINUE WITH IV FLUIDS. MONIOTR PATIENT FOR NOW. BOND D/C'D AT 1030. PATIENT DUE TO VOID 1830 TONIGHT. FAMILY AT BEDSIDE. WILL FOLLOW PLAN OF CARE.
[2016-11-02] VITALS: BP 100/58
[2016-11-02 01:47] VITALS: BP 100/58
[2016-11-02 04:00] VITALS: BP 100/58
[2016-11-02 06:49] VITALS: BP 100/58
--- NOTE | 2016-11-02 07:05 | PN- General Surgery ---
See Addendum Subjective Subjective: POD #2 s/p diagnostic laparoscopy, lysis of adhesions. Belching. Had flatus and small BM with enema yesterday, not much since. Denies N/V, F/C, CP/SOB. Ambulating well. Voiding spontaneously. Objective Vital Signs and I&Os Vital Signs Date Time Temp Pulse Resp B/P Pulse O2 O2 Flow FiO2 Ox Delivery Rate 11/02 0649 98.6 84 20 100/58 97 Nasal Cannula 11/02 0147 98.6 84 20 100/58 97 Room Air / 0000 Nasal 2.0L Cannula / 0000 98.6 84 20 100/58 02/ 2153 97.4 79 20 108/60 97 Nasal Cannula 11/01 2006 97.9 79 20 118/70 97 Nasal Cannula 11/01 1999 97.9 79 20 118/70 / 1819 97.7 89 20 118/70 93 Room Air / 1600 Nasal 2.0L Cannula 11/01 1600 97.6 88 20 110/70 /03 1558 97.8 88 20 110/70 96 Nasal Cannula 11/01 1346 97.7 87 20 124/80 97 Nasal 2.0L Cannula 11/01 0800 96 Nasal 2.0L Cannula Intake & Output / 0800 / 0000 / 1600 11/01 0800 11/01 0000 10/31 1600 Intake Total 1450 1410 1120 1000 1000 Output Total 105 299 2236 1900 500 Balance 650 610 -1080 -900 500 Intake, IV 1000 1170 1120 1000 1000 Intake, Oral 450 240 0 0 Output, Urine 641 049 7498 1900 500 Patient 160 lb Weight Physical Exam: Gen: AAOx3 in NAD Cor: S1+S2+ Lungs: CTA narendra Abd: soft, tender diffusely across abdomen, not distended, hypoactive BS auscultated. Bandaids C/D/I. Ext: no edema or calf tenderness to narendra lower extremities. Results Last 48 Hours of Labs: Laboratory Tests 11/01 10/31 0745 0705 Chemistry Sodium (137 - 145 mmol/L) 140 138 Potassium (3.5 - 5.1 mmol/L) 4.5 4.0 Chloride (98 - 107 mmol/L) 101 105 Carbon Dioxide (22 - 30 mmol/L) 30 25 Anion Gap (5 - 16) 9 9 BUN (9 - 20 mg/dL) 10 7 L Creatinine (0.7 - 1.2 mg/dL) 1.1 1.2 Estimated GFR (>60 ml/min) > 60 > 60 BUN/Creatinine Ratio (7 - 25 %) 9.1 5.8 L Glucose (65 - 99 mg/dL) 87 Phosphorus (2.5 - 4.5 mg/dL) 3.9 Magnesium (1.6 - 2.3 mg/dL) 1.8 Hematology CBC w Diff NO MAN DIFF REQ MAN DIFF ORDERED WBC (4.8 - 10.8 /CUMM) 3.5 L 3.4 L RBC (4.70 - 6.10 /CUMM) 4.64 L 4.67 L Hgb (14.0 - 18.0 G/DL) 13.8 L 14.1 Hct (42 - 52 %) 40.2 L 40.8 L MCV (80.0 - 94.0 FL) 86.5 87.2 MCH (27.0 - 31.0 PG) 29.8 30.2 RDW (11.5 - 14.5 %) 12.9 13.2 Plt Count (130 - 400 /CUMM) 173 158 MPV (7.4 - 10.4 FL) 7.8 8.2 Gran % (42.2 - 75.2 %) 60.4 23.8 L Lymphocytes % (20.5 - 51.1 %) 31.7 57.6 H Monocytes % (1.7 - 9.3 %) 7.7 16.7 H Eosinophils % (0 - 5 %) 0 1.3 Basophils % (0.0 - 2.0 %) 0.2 0.6 Absolute Granulocytes (1.4 - 6.5 /CUMM) 2.1 0.8 L Segmented Neutrophils (42.2 - 75.2 %) 25 L Band Neutrophils (0.0 - 5.0 %) 2 Absolute Lymphocytes (1.2 - 3.4 /CUMM) 1.1 L 1.9 Lymphocytes (20.5 - 51.1 %) 59 H Monocytes (1.7 - 9.3 %) 13 H Absolute Monocytes (0.10 - 0.60 /CUMM) 0.3 0.6 Eosinophils (0 - 5.0 %) 1 Absolute Eosinophils (0.0 - 0.7 /CUMM) 0 0 Absolute Basophils (0.0 - 0.2 /CUMM) 0 0 Platelet Estimate (ADEQUATE) VERIFIED BY SMEAR Normocytic RBCs VERIFIED Normochromic RBCs VERIFIED PUBS MCHC (33.0 - 37.0 G/DL) 34.5 34.7 Assessment/Plan Assessment/Plan A: 26 year old male with hx of Crohn's disease admitted with abdominal pain now POD #2 s/p diagnostic laparoscopy/lysis of adhesions; AVSS. Plan: Await increase in bowel function prior to further advancement of diet. Encouraged incentive spirometry and getting out of bed and ambulating. Will d/c Dilaudid YOUTH ASSOCIATE and begin prn oxycodone/prn iv dilaudid as he states the beach lifeguard does not help him Tylenol scheduled around the clock. Wean off oxygen please. Core Measures/Miscellaneous Venous Thromboembolism VTE Risk Factors: No Risk Factors VTE Contraindications: No Contraindications VTE Prophylaxis Ordered Inpt Mech & Pharm VTE Diagnosis: No VTE Type: NONE VTE Confirmed by (Test): NONE Beta Jose Is Beta Jose a Home Med? No Antibiotics Is Patient on Antibiotics? No
[2016-11-02 08:25] LABS: ABSOLUTE BASOPHIL COUNT 0 /CUMM (0.0-0.2); ABSOLUTE EOSINOPHIL COUNT 0 /CUMM (0.0-0.7); ABSOLUTE LYMPH COUNT 1.9 /CUMM (1.2-3.4); ABSOLUTE MONOCYTE COUNT 0.4 /CUMM (0.10-0.60); BASOPHIL % 0.3 % (0.0-2.0); EOSINOPHIL % 0.9 % (0-5); GRANULOCYTE % 45.5 % (42.2-75.2); MEAN CORPUSCULAR HGB 30.2 PG (27.0-31.0); MEAN CORPUSCULAR HGB CONC 34.4 G/DL (33.0-37.0); MEAN CORPUSCULAR VOLUME 87.7 FL (80.0-94.0); MEAN PLATELET VOLUME 8.1 FL (7.4-10.4); PLATELET COUNT 151 /CUMM (130-400); RBC DISTRIBUTION WIDTH 13.3 % (11.5-14.5); RED BLOOD CELL CT 4.01 /CUMM (4.70-6.10); WHITE BLOOD CELL COUNT 4.3 /CUMM (4.8-10.8)
[2016-11-02 09:29] LABS: HEMATOCRIT 35.2 % (42-52)
--- NOTE | 2016-11-02 10:00 | NUR ---
Notified Paulina Carter surgical PA of patient fairly tolerating Magnesium Citrate. IV Zofran given secondary to nausea with taking Magnesium Citrate. Will continue to monitor. Family at bedside for support. Call araujo in reach.
[2016-11-02 14:16] VITALS: BP 142/90
[2016-11-02 22:21] VITALS: BP 100/64
[2016-11-03 06:57] VITALS: BP 100/52
[2016-11-03 08:49] LABS: ABSOLUTE BASOPHIL COUNT 0 /CUMM (0.0-0.2); ABSOLUTE EOSINOPHIL COUNT 0.1 /CUMM (0.0-0.7); ABSOLUTE GRANULOCYTE CT 0.8 /CUMM (1.4-6.5); ABSOLUTE LYMPH COUNT 1.9 /CUMM (1.2-3.4); ABSOLUTE MONOCYTE COUNT 0.3 /CUMM (0.10-0.60); BASOPHIL % 0.5 % (0.0-2.0); EOSINOPHIL % 4.3 % (0-5); HEMATOCRIT 37.3 % (42-52); MEAN CORPUSCULAR HGB CONC 34.5 G/DL (33.0-37.0); MEAN CORPUSCULAR VOLUME 86.8 FL (80.0-94.0); MEAN PLATELET VOLUME 7.6 FL (7.4-10.4); PLATELET COUNT 160 /CUMM (130-400); RBC DISTRIBUTION WIDTH 13.2 % (11.5-14.5); RED BLOOD CELL CT 4.29 /CUMM (4.70-6.10)
--- NOTE | 2016-11-03 09:05 | PN- General Surgery ---
See Addendum Subjective Subjective: Pt feels a little better today. No further hiccups or belching. He is tolerating clear liquids. Admits to feeling "queasy," but denies overt nausea or emesis. He had a large BM yesterday with an enema. No flatus since then. He ambulated this morning and is voiding spontaneously. Still c/o mild RUQ pain. Reports mild upper respiratory congestion. Objective Vital Signs and I&Os Vital Signs Date Time Temp Pulse Resp B/P Pulse O2 O2 Flow FiO2 Ox Delivery Rate 11/03 0657 97.9 91 20 100/52 93 Room Air 11/02 2221 98.4 92 20 100/64 92 Room Air 11/02 1416 98.4 90 20 142/90 95 Room Air 11/02 1130 97.7 96 Room Air 11/02 1059 94 Room Air Intake & Output 11/03 1600 11/03 0800 / 0000 / 1600 11/02 0800 / 0000 Intake Total 700 1200 1000 1800 1450 Output Total 1000 1000 450 800 Balance 700 200 0 1350 650 Intake, IV 600 657 492 4558 1000 Intake, Oral 100 600 400 500 450 Number 1 Bowel Movements Output, Urine 1000 1000 450 800 Physical Exam: General: Pt is awake and alert. NAD. Observed ambulating. Currently sitting up in chair. Cardiac: Reg Pulm: CTA bilaterally. No wheezes or crackles appreciated. Abdomen: Still mildly distended. Incisions are c/d/i with steris in place. Mild tenderness noted throughout, nonfocal, except over LUQ incision. Normoactive to hyperactive BS were heard. Ext: No edema or calf tenderness appreciated. Assessment/Plan Assessment/Plan Pt is a 26 yo M with a hx of Crohn's disease, s/p ileocecectomy with revision, who is now POD #3 diagnostic laparoscopy with ROSA. No specific etiology discovered intraoperatively. Pt is having BM with enema. Plan: -Slow advancement of diet. Consider full liquids with toast for now. If tolerated, will continue to advance. -Ok to heplock IVF. -Limit narcotics if possible. Discontinue use of IV dilaudid. Continue Oxycodone as needed and APAP around the clock for pain. Toradol can be used as needed for breakthrough pain. -Continue daily miralax and colace TID. Fleets prn. -Protonix for GI ppx. Switch to po prilosec when diet advanced to regular. -Heparin SC and alps for DVT ppx. -Band-aids were removed. Ok for patient to shower if he desires. -Will discuss with covering attending, Dr. Santos. Core Measures/Miscellaneous Venous Thromboembolism VTE Risk Factors: No Risk Factors VTE Contraindications: No Contraindications VTE Prophylaxis Ordered Inpt Mech & Pharm VTE Diagnosis: No VTE Type: NONE VTE Confirmed by (Test): NONE Beta Jose Is Beta Jose a Home Med? No Antibiotics Is Patient on Antibiotics? No
[2016-11-03 09:26] LABS: WHITE BLOOD CELL COUNT 3.2 /CUMM (4.8-10.8)
[2016-11-03 14:26] VITALS: BP 124/70
[2016-11-03 21:31] VITALS: BP 116/80
--- NOTE | 2016-11-04 05:59 | Patient Discharge Instructions ---
Discharge Instructions General Discharge Information You were seen/treated for: ABDOMINAL PAIN, FEVER You had these procedures: 10/31/16 EXPLORATORY LAPAROSCOPY, LYSIS OF ADHESIONS Watch for these problems: FEVER, NAUSEA, VOMITING, INCREASED ABDOMINAL PAIN Other wound care: YOU MAY SHOWER DESIRED. LEAVE STERI STRIPS IN PLACE UNTIL THEY FALL OFF ON THEIR OWN. Diet Continue normal diet: Yes ( TOLERATED) Activity Full Activity/No Limits: No Activity Self Limited: Yes Pounds, do NOT lift more than: 10 Other activity limits: NO STRENUOUS ACTIVITY OR HEAVY LIFTING, PUSHING OR PULLING. NO DRIVING WHILE USING NARCOTICS Acute Coronary Syndrome Inclusion Criteria At DC or during hospital stay patient has or had the following: ACS DIAGNOSIS No Discharge Core Measures Meds if any: Prescribed or Continued at Discharge Meds if any: NOT Prescribed or Continued at Discharge Congestive Heart Failure Inclusion Criteria At DC or during hospital stay patient has or had the following: CHF DIAGNOSIS No Discharge Core Measures Meds if any: Prescribed or Continued at Discharge Meds if any: NOT Prescribed or Continued at Discharge Cerebrovascular accident Inclusion Criteria At DC or during hospital stay patient has or had the following: CVA/TIA Diagnosis No Discharge Core Measures Meds if any: Prescribed or Continued at Discharge Meds if any: NOT Prescribed or Continued at Discharge Venous thromboembolism Inclusion Criteria VTE Diagnosis No VTE Type NONE VTE Confirmed by (Test) NONE Discharge Core Measures - Per Current guidelines, there needs to be overlap - treatment for the first 5 days of Warfarin therapy. - If discharged on Warfarin prior to 5 days of - overlap therapy, the patient will need to be - assessed for post discharge needs including - *Post discharge parental anticoagulation - *Warfarin and/or parental anticoagulation education - *Follow up date to check INR post discharge At least 5 days overlap therapy as Inpatient No Meds if any: Prescribed or Continued at Discharge Note: Overlap Therapy is Warfarin and Anticoagulant Meds if any: NOT Prescribed or Continued at Discharge
[2016-11-04 06:00] VITALS: BP 114/70
--- NOTE | 2016-11-04 07:15 | PN- General Surgery ---
See Addendum Subjective Subjective: The patient was seen this morning postoperative day #4. He reports his pain is under adequate control. He is tolerating a full liquid diet with intermittent nausea but no vomiting. His last bowel movement was today prior with an enema and he continues to pass small amounts of flatus. Objective Vital Signs and I&Os Vital Signs Date Time Temp Pulse Resp B/P Pulse O2 O2 Flow FiO2 Ox Delivery Rate 11/04 0500 97.5 91 18 114/70 95 Room Air 11/03 2131 98.6 92 18 116/80 98 / 1426 98.2 86 18 124/70 95 Room Air / 0800 92 Room Air Intake & Output 11/04 0800 / 0000 / 1600 11/03 0800 11/03 0000 / 1600 Intake Total 100 131 7671 700 1200 1000 Output Total 800 1000 1000 Balance 100 100 250 700 200 0 Intake, IV 350 600 600 600 Intake, Oral 100 100 700 100 600 400 Number 0 1 Bowel Movements Output, Urine 800 1000 1000 Physical Exam: Gen.: Alert and in no obvious distress Skin: Warm and dry Abdomen: Soft, mildly distended, appropriate incisional tenderness, bowel sounds positive. Port sites are clean, dry, and intact without signs of infection. Extremities: Bilateral lower extremities are warm without calf tenderness or significant edema. Assessment/Plan Assessment/Plan Assessment: 26-year-old male with history of Crohn's and ileocecal ectomy in the past. Status post a negative exploratory laparoscopy postoperative day #4. The patient is progressing as expected, his pain is under adequate control, and he is somewhat tolerating a full liquid diet. Plan: Continue on full liquid diet Follow-up morning laboratory studies Out of bed ambulate GI and DVT prophylaxis Give 100 ML's of mag citrate in addition to current bowel regiment Core Measures/Miscellaneous Venous Thromboembolism VTE Risk Factors: No Risk Factors VTE Contraindications: No Contraindications VTE Prophylaxis Ordered Inpt Mech & Pharm VTE Diagnosis: No VTE Type: NONE VTE Confirmed by (Test): NONE Beta Jose Is Beta Jose a Home Med? No Antibiotics Is Patient on Antibiotics? No
[2016-11-04 13:48] VITALS: BP 116/70
[2016-11-04 22:32] VITALS: BP 112/80
[2016-11-05 06:44] VITALS: BP 118/76
--- NOTE | 2016-11-05 09:29 | PN- General Surgery ---
Subjective Subjective: Pain controlled with oxycodone. He reports tolerating diet, with some right sided pain at times. Intermittent nausea, but none this morning. Passing flatus and +soft brown stools. Ambulating well. No shortness of breath. No chest pains. No dizziness. Voiding without difficulty. Objective Vital Signs and I&Os Vital Signs Date Time Temp Pulse Resp B/P Pulse O2 O2 Flow FiO2 Ox Delivery Rate 11/05 0644 97.8 73 18 118/76 96 Room Air 11/04 2232 97.5 85 18 112/80 95 Room Air 11/04 1348 98.1 87 18 116/70 95 Room Air Intake & Output 11/05 1600 11/05 0800 11/05 0000 11/04 1600 11/04 0800 11/04 0000 Intake Total 240 1510 720 100 100 Output Total 850 Balance 240 1510 -130 100 100 Intake, IV 10 Intake, Oral 240 1500 720 100 100 Number 1 Bowel Movements Output, Urine 850 Physical Exam: General - alert & oriented x 3. comfortable. no acute distress. Lungs - clear bilaterally. no w/r/r. Cardiac - s1s2. reg. Abdomen - soft. active bowel sounds appreciated. incisions approximated with steri strips. Extremities - warm bilaterally. no c/c/e. calves soft and nontender b/l. Assessment/Plan Assessment/Plan This 26-year-old male with history of Crohn's and ileocecectomy is POD#5 s/p lysis of adhesions and diagnostic laparoscopy currently tolerating low fiber diet pain controlled with oxycodone and tylenol oob/ambulating well bowel regime in place. holding cholestyramine. hep sc - dvt ppx d/c planning for home today after lunch will d/w ?home bowel regime, to clarify Core Measures/Miscellaneous Venous Thromboembolism VTE Risk Factors: No Risk Factors VTE Contraindications: No Contraindications VTE Prophylaxis Ordered Inpt Mech & Pharm VTE Diagnosis: No VTE Type: NONE VTE Confirmed by (Test): NONE Beta Jose Is Beta Jose a Home Med? No Antibiotics Is Patient on Antibiotics? No
[2016-11-05] MEDS ORDERED: DOCUSATE SODIU100 M3 PO (09:34)
[2016-11-05] MEDS ORDERED: TYLENOL325 M1 PO (09:34)
[2016-11-05] MEDS ORDERED: MIRALAX119 GM PO ×2 (09:34→10:47)
[2016-11-05] MEDS ORDERED: OXYCODONE HCL5 M1 PO (09:34)
--- NOTE | 2016-11-05 09:37 | Surgical Discharge Summary ---
Visit Information Visit Dates Admission Date: 10/30/16 Discharge Date: 11/05/16 History of Present Illness Chief Complaint: abdominal pain Medical History Neurological: NONE EENT: NONE Cardiovascular: NONE Respiratory: asthma Gastrointestinal: Crohn's disease, PERFORATION Hepatic: NONE Renal: NONE Musculoskeletal: NONE Psychiatric: NONE Endocrine: NONE Blood Disorders: NONE Cancer(s): NONE SECOND BUTLER/Reproductive: NONE History of MRSA: No History of VRE: No History of CDIFF: No Isolation History: Standard Influenza Vaccine: 06/29/16 Surgical History Pertinent Surgical History: hernia repair-incisional, RECTAL FISTULA, ILEECTOMY, ABDOMINAL MESH ileocectomy Family History Relations & Conditions If Any: Relation not specified for: FH: inflammatory bowel disease Psychosocial History What is Your Primary Language? Wallisian ETOH Use: denies use Review of Systems: see h&p Hospital Course Course Attending Physician: JULY RENDON JR, DO Primary Care Physician: TANA PACK,[facility] Course: This is a 26-year-old gentleman with a long-standing patient of , with known history of Crohn's disease, status post ileocolectomy for this. He later had to have a revision of his ileocolonic anastomosis for internal hernia. Sometime after this he had a laparoscopic repair of ventral hernia. Over the last few months the patient has been having near chronic abdominal pain and change in bowel function and intolerance to diet. He has had extensive workup rectum by his ocean freight manager who is in IBD specialist which has included: Upper endoscopy, colonoscopy, CT scan of abdomen and pelvis an MR enterography. No clear source of his pain could be identified. And it was the opinion of his gastric urologist that this was not a Crohn's flare. We discussed doing an elective diagnostic laparoscopy. However, patient experienced worsening abdominal pain and fever and nausea so he was sent to the emergency room. At the time of his admission he was tachycardic and febrile. He did not have leukocytosis. CT scan of the abdomen and pelvis did not reveal acute abdominal cavity disease. He was tender on exam but did not have kasey peritonitis. He was admitted placed on bowel rest given IV resuscitation. His abdominal pain worsened overnight the point where he was requiring narcotic pain medicine. He began to spike fevers to almost 103 degrees. He developed a leukocytosis and his tachycardia got worse despite IV resuscitation. His abdominal pain remained tender but without kasey peritonitis. After discussion with the patient we decided to proceed with diagnostic laparoscopy see if we can identify the source of fever and pain. On 10/31/16, he had a diagnostic laparoscopy and extensive lysis of adhesions, but could not find any other abnormalities as a source for his pain. Post-operative diet advancement slowly with return of bowel function. Pain control transitioned from iv to oral pain medications as able. Bowel regime for constipation included colace tid, miralax bid, and mineral oil. His usual home med cholestyramine was held since his admission. He is currently tolerating a low residue diet and pain is controlled with oxycodone / tylenol. He will be discharged home today pending he tolerates breakfast and lunch. Bowel regime to be determined by Complications: None Allergies: Coded Allergies: NO KNOWN ALLERGIES (05/23/13) Disposition Summary Disposition Principal Diagnosis: abdominal pain, adhesions, crohns disease Additional Diagnosis: s/p Diagnostic laparoscopy Laparoscopic lysis of adhesions lasting almost 2 hours Discharge Disposition: home or self care Discharge Instructions General Discharge Information Code Status: Full Code Patient's Diet: low residue diet Patient's Activity: as tolerated. no heavy lifting (>10 lbs) Follow-Up Instructions/Appts: call to schedule follow up visit Medications at Discharge Discharge Medications: Stop taking the following medications: Cholestyramine (With Sugar) (Cholestyramine Packet) 4 GRAM POWD.PACK ORAL DAILY Qty = 30 Ondansetron (Zofran Odt) 4 MG TAB.RAPDIS SUBLINGUAL THREE TIMES DAILY as needed for NAUSEA/VOMITING Qty = 10 Continue taking these medications: Adalimumab (Humira Pen) 40 MG/0.8 ML PEN.IJ.KIT 1 Syringe Inject into fatty tissue EVERY 2 WEEKS Qty = 2 Desipramine HCl (Desipramine HCl) 50 MG TABLET 1 Tablet ORAL Every night Albuterol Sulfate (Proair Hfa) 90 MCG HFA.AER.AD 2 Puff Inhale through mouth EVERY 4-6 HOURS NEEDED as needed for BREATHING PROBLEMS Qty = 9 Dicyclomine HCl (Dicyclomine HCl) 10 MG CAPSULE 1 Capsule ORAL EVERY SIX HOURS NEEDED as needed for GI Qty = 90 Olopatadine HCl (Patanol) 0.1 % DROPS 1 Drop In the eye TWICE DAILY Qty = 5 Fluticasone Propionate/Salme (Advair Hfa 230-21 Mcg Inhaler) 230 MCG-21 MCG/ ACTUATION HFA.AER.AD PUFF ORAL Qty = 12 Start taking the following new medications: Acetaminophen (Tylenol) 325 MG TABLET 650 Milligram ORAL EVERY SIX HOURS as needed for pain control Days = 10 No Refills Instructions: available over the counter. take as directed, as needed. Docusate Sodium (Docusate Sodium) 100 MG CAPSULE 100 Milligram ORAL THREE TIMES DAILY as needed for CONSTIPATION Days = 14 No Refills Instructions: stool softener available over the counter Polyethylene Glycol 3350 (Miralax) 17 GRAM/DOSE POWDER 17 Gram ORAL TWICE DAILY as needed for CONSTIPATION Days = 14 No Refills Instructions: take as needed, as directed Oxycodone HCl (Oxycodone HCl) 5 MG TABLET 1-2 Tablet ORAL EVERY 4-6 HOURS NEEDED as needed for pain control Qty = 30 No Refills Instructions: take as directed for pain control, as needed Copies To: TANA PACK,CHARLENE
[2017-03-10] MEDS ORDERED: FLONASE ALLERG9.9 ML (12:51)
[2017-03-10] MEDS ORDERED: ALLEGRA ALLERG180 M1 PO (12:51)
[2017-03-10] MEDS ORDERED: CYMBALTA30 M1 PO (12:51)
[2017-03-10] MEDS ORDERED: OXYCODONE-ACET1 EAC1 PO (12:52)
[2017-03-10] MEDS ORDERED: AMBIEN10 M1 PO (12:52)
== END 2016-11-05 13:07 | DRG 336 ==
LOC: ENRESERVTM → CANRESERV → ENRESERVDT → ERH 09:17 → ERHI 14:51 → 2NA 14:51 → ENPENDDIS 14:51 → 2NA 17:44
PROVIDERS: Emergency Medicine; Physician Assistant; Physician Assistant Surgical; ADMIT Colon & Rectal Surgery
PROC: 0DNL4ZZ Release Transverse Colon, Percutaneous Endoscopic Approach (ICD-10-PCS; principal; 2016-10-31)
PROC: 0DNS4ZZ (ICD-10-PCS; principal; 2016-10-31)
DX: K66.0 Peritoneal adhesions (postprocedural) (postinfection) (principal); K50.90 Crohn's disease, unspecified, without complications; J45.909 Unspecified asthma, uncomplicated
CPT/HCPCS: 2NAP; 2NASP; 36415; 74177; 78226; 81003; 82436; 87086; 96361; 96365; 96375; A9537; J0131; J0690; J1100; J1170; J1644; J1720; J1885; J2405; J2550; J3101; J3490; J7042; S5012

== ENCOUNTER 2017-03-11 01:04 | Inpatient (IN) | payer OTHER ==
[~2017-03-11] VITALS: Ht 172.7 cm; Wt 79.4 kg
[~2017-03-11 01:04] MED LIST changes: +ADVAIR HFA 230-12 GM PO; +ALLEGRA ALLERG180 M1 PO; +AMBIEN10 M1 PO; +CYMBALTA30 M1 PO; +DOCUSATE SODIU100 M3 PO; +FLONASE ALLERG9.9 ML; +MIRALAX119 GM PO; +OXYCODONE HCL5 M1 PO; +OXYCODONE-ACET1 EAC1 PO; +TYLENOL325 M1 PO
[2017-03-11] MEDS ORDERED: FLAGYL500 MG PO (09:38)
--- NOTE | 2017-03-11 15:35 | Admission Core Measures ---
Acute Coronary Syndrome Inclusion Criteria ACS Diagnosis No Inpatient Core Measures LDL Reminder: If No, please order W/I first 24hr of stay Congestive Heart Failure Inclusion Criteria CHF Diagnosis No Cerebrovascular accident Inclusion Criteria CVA/TIA Diagnosis No Inpatient Core Measures Bedside Swallow Eval Reminder: If BSE failed, place ST order Antithrombotic Reminder: Order Antithrombotic Medication by end of day 2 Antithrombotic Reminder: Document Reason Antithrombotic Not ordered by end of day 2 AFIB/Flutter Reminder: If Present, add to problem list AFIB/Flutter Reminder: Order Anticoag Medication for pts with AFIB/Flutter Atherosclerosis Reminder: If Present, add to problem list LDL Reminder: If No, please order W/I first 24hr of stay PT Order Reminder: If No, please order Venous thromboembolism Inpatient Core Measures VTE Risk Factors: Surgery No Mech VTE prophylaxis d/t No contraindications No VTE Pharm Prophylaxis d/t No contraindications Inclusion Criteria - Per Current guidelines, there needs to be overlap - treatment for the first 5 days of Warfarin therapy. - Parenteral Anticoagulation (IV or SC) needs to be - given along with Warfarin therapy. VTE Diagnosis No VTE Type NONE VTE Confirmed by (Test) NONE Problem List As ranked by this Provider includes Assessment & Plan 1. Abdominal pain 2. Crohn disease HOME MEDS Home Med List Adalimumab (Humira Pen) 40 MG/0.8 ML PEN.IJ.KIT 1 SYR SC Q2W UNKNOWN ( Reported) Albuterol Sulfate (Proair Hfa) 90 MCG HFA.AER.AD 2 PUF INH Q4-6 PRN PRN BREATHING PROBLEMS (Reported) Duloxetine Hydrochloride (Cymbalta) 30 MG CAPSULE.DR 1 CAP PO DAILY PAIN ( Reported) Fexofenadine HCl (Debbie Allergy) 180 MG TABLET 1 TAB PO DAILY ALLERGIES ( Reported) Metronidazole (Flagyl) 500 MG TABLET 1 TAB PO BID PREOP (Reported) Oxycodone HCl/Acetaminophen (Oxycodone-Acetaminophen 10-325) 10 MG-325 MG TABLET 1 TAB PO 4XDP PAIN (Reported) Zolpidem Tartrate (Ambien) 10 MG TABLET 1 TAB PO QPMP PRN SLEEP (Reported)
--- NOTE | 2017-03-11 15:42 | Operative Report ---
Operative/Inv Procedure Report Surgery Date: 03/11/17 Name of Procedure: Laparoscopic converted to open revision of ileocolonic anastomosis, with partial small and large bowel resection and extensive lysis of adhesions Pre-Operative Diagnosis: 1. Chronic right upper quadrant pain 2. Pseudoobstruction of ileocolonic anastomosis Post-Operative Diagnosis: 1. Chronic abdominal pain 2. Partial mechanical obstruction of ileocolonic anastomosis secondary to extrinsic scar tissue Estimated Blood Loss: 50ml to 100ml Surgeon/[employer] Vehicle Systems Maintainer: JULY RENDON JR, DO Anesthesia: general endotracheal tube, TAP block Monitors: Per routine Implants: None Drains: None Specimens: Ileocolonic anastomosis Complications: None Condition: Good Operative Indication: This is a 26-year-old gentleman who several years ago underwent a laparoscopic ileocolectomy for medical refractory Crohn's disease. He developed recurrent abdominal pain sometime later and underwent laparoscopic converted to open exploration. He was found to have an internal hernia at the mesenteric defect of his ileocolonic anastomosis. His ileocolonic anastomosis was revised at that time. Once again he developed recurrent abdominal pain, this time to be related to a ventral hernia. He had a robotic ventral hernia repair and despite this has had now chronic right upper quadrant severe pain. He has had extensive workup by his gastric urologist. Including: CT scans, upper and lower endoscopy , radiographic small bowel enteroscopy. No evidence of recurrent Crohn's disease was identified and no obvious source of abdominal pain was described. The only abnormality that I observed reviewing many this study with the often had what appeared to be impaction of stool at his ileocolonic anastomosis. This was present despite the fact colonoscopy demonstrated a patent ileocolonic anastomosis. Patient repeatedly came to my office stating he could not continue to live with this pain. After extensive discussion with the patient we decided to diagnostic laparoscopy with likely revision of his ileocolonic anastomosis. Operative/Procedure Note Note: On the day prior to his operation the patient a bowel prep at home including oral antibiotics and oral laxatives. He presented to [facility] and was taken into the operating room where he received IV antibiotics and subcutaneous heparin. He underwent induction of general anesthesia placement of endotracheal tube and Summers catheter. TAP block is performed by the anesthesia team. The left arm was tucked and then the abdomen was prepped and draped in usual fashion. We gained access to the abdominal cavity again Kessler technique, the Kessler port was placed supraumbilical in the midline. After entering the cavity a finger sweep revealed some adhesions superior to the port site. The port was placed and the abdomen was insufflated to 50 mmHg. Theww 5 mm ports were placed all under direct visualization of the lap scope in the left upper quadrant, left lower quadrant and suprapubic positions. Patient had most of his transverse colon and greater omentum stuck to the anterior abdominal wall. Extensive lysis of adhesions was performed over 1 hour using a combination of: Blunt dissection, sharp dissection, cautery and ligature. I was able to completely free the transverse colon and the greater omentum from the anterior abdominal wall. The anastomosis was visible was stuck in the right upper quadrant on the undersurface of the liver and the retroperitoneum. I could not utilize the tissues well enough to 5 the lateral adhesions so I divided the gastrocolic ligament ring at about the mid transverse colon and working retrograde to the anastomosis. At this point I could see the anastomosis. There was a small nubbin of tissue that looked like the corner of the staple line on the colon was folded over and adherent to other tissues. There was extensive interloop adhesions between the small bowel and small bowel and between the large bowel and small bowel. I did not feel this was technically safe or feasible to continue laparoscopically so we converted to open. A generous midline incision was created using the previous scar as a guideline. I was able then by hand to dissect the per quadrant adhesions freeing the anastomosis and rolling the small bowel medially. As I inspected the small bowel was a small serosal deficit about 20 cm from the anastomosis. This was repaired with interrupted 3-0 Vicryl 's in a Lemberted fashion. I tried at this point to reestablish normal planes freeing the colon and the colon mesentery from other adhesions and entering the lesser sac. I chose my proximal site of transection on the small bowel. The mesentery was cleared here and a DENISE 80 blue load stapler was used to divide the bowel. I chose my distal site of transection on the transverse colon. Once again a mesenteric defect was intentionally created and a blue loaded DENISE 80 stapler was used to divide the bowel. The mesentery was then sequentially divided with the LigaSure device and specimen was removed from the field. We inspected for hemostasis which appeared good. We then prepared to make the anastomosis. 2 tacking sutures were performed aligning the terminal ileum with the transverse colon. I had decided prior to surgery that we would do a side-to -side isoperistaltic anastomosis. So this is how the bowel was aligned. 2 small enterotomies were made intentionally starting at the end of the transverse colon and then on the small bowel approximating this area. The DENISE 80 stapler was placed into the lumen of the bowel. One arm of stapling device done each limb of the bowel, I made sure the antimesenteric portions of the bowel were aligned and the stapler was fired. The stapler was opened and removed. I inspected the lumen which appeared sound and without bleeding. The enterotomy was then closed in 2 layers. The inner layer was closed with running 2-0 Vicryl , the outer layer was closed with interrupted 3-0 silk and a Lemberted fashion. At this point we irrigated out the right gutter inspected for bleeding. Once again hemostasis was adequate. The fascia was closed with running looped 0 PDS suture. The subcutaneous tissue was closed with interrupted 2-0 Vicryl. The skin around the umbilicus was closed with 3-0 nylon in a mattress fashion. The remainder of the skin was closed with skin jayy. The thre 5 mm ports were closed with subcuticular 4-0 Vicryl and then. Steri-Strips were applied. A large dressing was applied. The patient tolerated the procedure well was extubated in the operating room and taken recovery area in good condition. At the end was operational needle sponges and attachments were accounted for.
--- NOTE | 2017-03-11 17:02 | PN- General Surgery ---
Subjective Subjective: POST-OP NOTE: Reports incisional pain. Still in pacu, awaiting transfer to floor. No dizziness. No shortness of breath. No chest pains. Objective Vital Signs and I&Os flowsheet reviewed vitals stable, u/o good Physical Exam: General - alert. sleepy. uncomfortable. Lungs - clear bilaterally. no w/r/r. Cardiac - s1s2. reg. Abdomen - midline dressing stained but intact. no drains. no hematoma. expected yolis-incisional tenderness. - guzman draining clear, yellow urine. Extremities - warm bilaterally. no c/c/e. calves soft and nontender b/l. athrombics active. 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 No Antibiotics Is Patient on Antibiotics? Yes If Yes: prophylaxis
[2017-03-11 20:00] VITALS: BP 124/90
--- NOTE | 2017-03-11 20:30 | NUR ---
PT ARRIVED FROM PACU. ALERT AND ORIENTED TIMES 3, VSS, AFEBRILE. ON 3L NC. ABDOMEN SOFT, BOWEL SOUNDS HYPOACTIVE, LUNG SOUNDS CLEAR. DRESSING TO MIDLINE ABDOMEN WITH DRIED BLOODY DRAINABE, SMALL BANDAGE TO L SIDE CLEAN, DRY AND INTACT. BOND PATENT, DRAINING CLEAR YELLOW URINE. IV SITE WNL, IVF INFUSING, DILAUDID MILLER HEAD WET PROCESS WITH GOOD EFFECT. IST GIVEN, ALPS ARE ON. CALL [facility]SON WITHIN REACH.
[2017-03-11 22:23] VITALS: BP 110/80
[2017-03-12] VITALS: BP 118/82
[2017-03-12 02:00] VITALS: BP 18/70
[2017-03-12 06:00] VITALS: BP 108/80
--- NOTE | 2017-03-12 07:06 | PN- General Surgery ---
See Addendum Subjective Subjective: He is currently sleeping after getting a dose of toradol, given after he woke up in pain. According to the , he reported "I think the block wore off". Objective Vital Signs and I&Os Vital Signs Date Time Temp Pulse Resp B/P B/P Pulse O2 O2 Flow FiO2 Mean Ox Delivery Rate 03/12 06 98.1 92 20 108/80 95 Nasal 3.0L Cannula 03/12 0200 99.1 90 18 18/70 94 Nasal 2.0L Cannula 03/12 0000 94 Nasal 3.0L Cannula 03/12 0000 99.1 96 18 118/82 94 Nasal 2.0L Cannula 03/11 2223 98.8 88 18 110/80 93 Room Air 03/11 221 Nasal 3.0L Cannula 03/11 2136 97 Nasal 3.0L Cannula 03/11 2000 98.1 80 18 124/90 03/11 2000 98.1 80 18 124/90 97 Nasal 3.0L Cannula Intake & Output 03/12 0800 03/12 0000 03/11 1600 03/11 0800 03/11 0000 03/10 1600 Intake Total 225 Output Total 1300 Balance -1075 Intake, IV 225 Output, Urine 1300 Patient 175 lb Weight Weight Estimated Measurement Method Physical Exam: General - currently sleeping. appears comfortable. Lungs - clear bilaterally. no w/r/r. Cardiac - s1s2. reg. Abdomen - soft. dressing stained. abdominal binder in place. - guzman draining clear yellow urine Extremities - warm bilaterally. no c/c/e. calves soft and nontender b/l. Current Medications: Current Medications Sig/Tawny Start time Last Medication Dose Route Stop Time Status Admin Acetaminophen 1,000 MG Q6P PRN 03/11 194 AC 03/12 IV 0412 Acetaminophen 650 MG Q4P PRN 03/11 194 AC PO Acetaminophen 1,000 MG .STK-MED ONE 03/11 1008 DC IV 03/11 1009 Albuterol Sulfate 2 PUF Q4 PRN 03/11 1530 AC 03/11 INH 2156 Budesonide/ 2 PUF BID 03/11 2200 AC Formoterol Fumarate INH Cefazolin Sodium 2 GM IQ8 03/11 1600 DC 03/12 N/A 1 UNIT IV 03/12 0029 0101 Dexamethasone 4 MG .STK-MED ONE 03/11 1754 DC IM 03/11 1755 Dexmedetomidine HCl 400 MCG .STK-MED ONE 03/11 1008 DC IV 03/11 1009 Dextrose/Sodium 1,000 ML .[id number] 03/11 1945 AC 03/12 Chloride IV 0407 Duloxetine HCl 30 MG DAILY 03/12 1000 AC PO Fentanyl Citrate 250 MCG .STK-MED ONE 03/11 1008 DC IM 03/11 1009 Heparin Sodium 5,000 UNIT Q8 03/12 0600 AC 03/12 (Porcine) SC 0550 Hydromorphone HCl 50 MG Q24H PRN 03/11 194 CAN Sodium Chloride 45 ML IV Hydromorphone HCl 2 MG .STK-MED ONE 03/11 1753 DC IM 03/11 1754 Hydromorphone HCl 50 MG Q24H PRN 03/11 1715 AC Sodium Chloride 45 ML IV Hydromorphone HCl 2 MG .STK-MED ONE 03/11 1646 DC IM 03/11 1647 Hydromorphone HCl 2 MG .STK-MED ONE 03/11 1008 DC IM 03/11 1009 Ketorolac 30 MG Q6 03/12 1200 UNVr Tromethamine IV Ketorolac 30 MG ONCE ONE 03/12 0530 DC 03/12 Tromethamine IV 03/12 0531 0550 Ketorolac 30 MG .STK-MED ONE 03/11 1707 DC Tromethamine IM 03/11 1708 Loratadine 10 MG DAILY 03/12 1000 AC PO Meperidine HCl 50 MG .STK-MED ONE 03/11 1647 DC IM 03/11 1648 Metronidazole 500 MG Q8H 03/12 0200 AC 03/12 N/A 1 UNIT IV 03/12 1059 0243 Metronidazole 500 MG IQ8 03/11 1600 DC N/A 1 UNIT IV 03/12 0059 Metronidazole 500 MG Q8H 03/11 0600 CAN N/A 1 UNIT IV 03/12 1459 Midazolam HCl 5 MG .STK-MED ONE 03/11 1008 DC IM 03/11 1009 Ondansetron HCl 4 MG Q6P PRN 03/11 1945 AC 03/12 IV 0116 Promethazine HCl 12.5 MG Q6P PRN 03/11 1945 AC 03/12 IV 03/18 1514 0453 Scopolamine HBr 1 PAT .STK-MED ONE 03/11 1009 [facility] 03/11 1010 Senna 374 MG AT BEDTIME NEED.. 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 No Antibiotics Is Patient on Antibiotics? Yes If Yes: prophylaxis
--- NOTE | 2017-03-12 13:00 | NUR ---
LATE ENTRY: PT'S ABDOMINAL DSG WITH MODERATE AMT OF OLD BLOODY DGE. DSG NOTED BY DR. RENDON THIS AM. DSG HAD BEEN INTACT UNTIL PT WENT FOR HIS THIRD WALK AROUND THE HALLS. VERY SCANT AMT OF BLOODY DGE SEEPED THROUGH THE BOTTOM OF PT'S DSG. SURGICAL PA EUGENIO NOTIFIED. ABD PAD PLACED TO REINFORCE DSG. TOP DSG DRY AND INTACT. WILL CONT TO MONITOR.
[2017-03-12 13:44] LABS: ABSOLUTE BASOPHIL COUNT 0 /CUMM (0.0-0.2); ABSOLUTE EOSINOPHIL COUNT 0 /CUMM (0.0-0.7); ABSOLUTE GRANULOCYTE CT 9.5 /CUMM (1.4-6.5); ABSOLUTE LYMPH COUNT 2.2 /CUMM (1.2-3.4); ABSOLUTE MONOCYTE COUNT 1.2 /CUMM (0.10-0.60); BASOPHIL % 0.2 % (0.0-2.0); EOSINOPHIL % 0 % (0-5); HEMATOCRIT 37.5 % (42-52); MEAN CORPUSCULAR HGB 30.2 PG (27.0-31.0); MEAN CORPUSCULAR HGB CONC 33.8 G/DL (33.0-37.0); MEAN CORPUSCULAR VOLUME 89.4 FL (80.0-94.0); PLATELET COUNT 197 /CUMM (130-400); RBC DISTRIBUTION WIDTH 13.8 % (11.5-14.5); WHITE BLOOD CELL COUNT 12.9 /CUMM (4.8-10.8)
[2017-03-12 13:46] LABS: GRANULOCYTE % 73.1 % (42.2-75.2)
[2017-03-12 15:02] VITALS: BP 120/90
--- NOTE | 2017-03-12 18:30 | NUR ---
PATIENT'S FLUIDS STOPPED, PER STU [facility] NOTE. PATIENT HAS BEEN DRINKING MORE AND CONSUMED OVER 75% OF DINNER (CLEAR LIQUID DIET).
--- NOTE | 2017-03-12 18:57 | NUR ---
PATIENT DRINKING MORE FLUIDS AND HAS BEEN VOIDING. FLUIDS D/C'D PER SX PA NOTE. RECEIVING ALL PAIN MEDS ATC, PAIN BETWEEN 7-8. AMBULATING FREQUENTLY. ABD BINDER IN PLACE, DSG REINFORCED 1ST SHIFT, DRIED BLOOD NOTED, NO ACTIVE BLEEDING.
--- NOTE | 2017-03-12 22:01 | NUR ---
PATIENT TOLERATING PO FLUIDS AND INTAKE WAS GREATER THAN 300CC SURGICAL PA CARI NOTIFIED TO STOP IVF.
[2017-03-12 22:24] VITALS: BP 112/72
[2017-03-13 07:15] VITALS: BP 124/88
--- NOTE | 2017-03-13 07:27 | PN- General Surgery ---
See Addendum Subjective Subjective: The patient was seen this morning postoperatively day #2. He still reports having significant pain despite the recent change in his regiment. He is tolerating a clear liquid diet with intermittent bouts of nausea and burping which are short-lived and self resolving. He has yet to pass flatus and has no other complaints at the current time. Objective Vital Signs and I&Os Vital Signs Date Time Temp Pulse Resp B/P B/P Pulse O2 O2 Flow FiO2 Mean Ox Delivery Rate 03/13 0715 98.1 82 18 124/88 91 Room Air 03/12 2224 97.9 85 18 112/72 93 03/12 1600 95 Nasal 1.0L Cannula 03/12 1530 95 Nasal 1.0L Cannula 03/12 1502 97.6 66 20 120/90 91 Room Air 03/12 0800 98 Nasal 3.0L Cannula Intake & Output 03/13 0800 / 0000 /14 1600 /14 0800 / 0000 /13 1600 Intake Total 1075 775 225 Output Total 493 142 4091 1300 Balance 550 575 -1000 -1075 Intake, IV 475 525 225 Intake, Oral 600 250 Number 0 Bowel Movements Output, Urine 557 475 3162 1300 Patient 175 lb Weight Weight Estimated Measurement Method Physical Exam: Gen.: Alert and in no obvious distress Skin: Warm and dry Abdomen: Softly distended, appropriate incisional tenderness, bowel sounds sluggish. Surgical dressing is slightly blood tinged at the inferior aspect otherwise intact Extremities: Bilateral lower extremities are warm without calf tenderness or significant edema. Assessment/Plan Assessment/Plan Assessment: 26-year-old male status post revision of ileaocolonic anastomosis postoperative day #2. The patient is progressing as expected however his bowel function as yet to return. His pain is also not fully controlled with the current regimen. Plan: Keep on clear liquid diet Add oxycodone 5 mg by mouth every 4 hours for additional analgesia Follow-up morning laboratory studies Out of bed and ambulate GI and DVT prophylaxis Incentive spirometry Core Measures/Miscellaneous Venous Thromboembolism VTE Risk Factors: Inflammatory bowel Dx, Surgery VTE Contraindications: No Contraindications VTE Diagnosis: No VTE Type: NONE VTE Confirmed by (Test): NONE Beta Jose Is Beta Jose a Home Med? No Antibiotics Is Patient on Antibiotics? No
[2017-03-13 14:29] VITALS: BP 102/80
[2017-03-13 22:03] VITALS: BP 100/82
[2017-03-14 06:53] VITALS: BP 122/84
[2017-03-14 07:55] LABS: ABSOLUTE BASOPHIL COUNT 0 /CUMM (0.0-0.2); ABSOLUTE EOSINOPHIL COUNT 0.5 /CUMM (0.0-0.7); ABSOLUTE GRANULOCYTE CT 3.1 /CUMM (1.4-6.5); ABSOLUTE LYMPH COUNT 2.7 /CUMM (1.2-3.4); ABSOLUTE MONOCYTE COUNT 0.6 /CUMM (0.10-0.60); BASOPHIL % 0.5 % (0.0-2.0); EOSINOPHIL % 6.9 % (0-5); GRANULOCYTE % 44.5 % (42.2-75.2); HEMATOCRIT 35.5 % (42-52); MEAN CORPUSCULAR HGB 30.3 PG (27.0-31.0); MEAN CORPUSCULAR HGB CONC 33.8 G/DL (33.0-37.0); MEAN CORPUSCULAR VOLUME 89.7 FL (80.0-94.0); PLATELET COUNT 176 /CUMM (130-400); RBC DISTRIBUTION WIDTH 13.5 % (11.5-14.5); RED BLOOD CELL CT 3.96 /CUMM (4.70-6.10); WHITE BLOOD CELL COUNT 6.9 /CUMM (4.8-10.8)
--- NOTE | 2017-03-14 08:22 | PN- General Surgery ---
See Addendum Subjective Subjective: Patient slept overnight but woke up this am in discomfort. He states that he continues to have nausea but has not vomitted, and he reports that his nausea is not constant as it was in the two days prior. He denies flatus or bm. He denies chest pain, shortness of breath and difficulty breathing. He has been voiding without difficulty. He has been ambulating. Objective Vital Signs and I&Os Vital Signs Date Time Temp Pulse Resp B/P B/P Pulse O2 O2 Flow FiO2 Mean Ox Delivery Rate 03/14 0653 98.0 67 18 122/84 92 Room Air 03/13 2203 97.9 76 18 100/82 93 03/13 1429 97.9 77 18 102/80 92 Room Air Intake & Output 03/14 1600 03/14 0800 03/14 0000 03/13 1600 03/13 0800 03/13 0000 Intake Total 340 820 273 34 8624 Output Total 650 1025 1050 750 525 Balance -310 -205 -210 -700 550 Intake, IV 0 475 Intake, Oral 340 820 840 50 600 Number 0 Bowel Movements Output, Urine 650 1025 1050 750 525 Patient 175 lb Weight Physical Exam: General: Alert and oriented x3, no acute distress Cardiac: RRR, s1s2 Pulm: CTA bilaterally ABD: Incisional tenderness, binder in place, soft with palpation, hypoactive bowel sounds auscultation Assessment/Plan Assessment/Plan This is a 26 year old male POD 3 s/p lap to open revision of ileocolectomy. Has been tolerating clear liquid diet but has yet to pass flatus. Continues to require hospitalization for administration of iv pain medication and close monitoring while return of bowel function is awaited. -Continue clears for now, awaiting return of bowel function. -Begin to add po pain medication, oxycodone, and wean iv dilaudid -OOB, ambulation recommended -Incentive spirometry -Will d/w Dr. Mansfield Core Measures/Miscellaneous Venous Thromboembolism VTE Risk Factors: Inflammatory bowel Dx, Surgery VTE Contraindications: No Contraindications VTE Diagnosis: No VTE Type: NONE VTE Confirmed by (Test): NONE Beta Jose Is Beta Jose a Home Med? No Antibiotics Is Patient on Antibiotics? No
[2017-03-14 14:42] VITALS: BP 110/83
[2017-03-14 23:15] VITALS: BP 112/68
[2017-03-15 07:00] VITALS: BP 119/75
--- NOTE | 2017-03-15 08:19 | PN- General Surgery ---
See Addendum Subjective Subjective: Nausea improving, passing more flatus but continues to complain of pain mainly on right side that worsens with palpation. He denies chest pain, shortness of breath and difficulty breathing. He has been ambulating. Objective Vital Signs and I&Os Vital Signs Date Time Temp Pulse Resp B/P B/P Pulse O2 O2 Flow FiO2 Mean Ox Delivery Rate 03/15 0700 97.8 66 18 119/75 93 Room Air 03/14 2315 97.7 63 18 112/68 95 Room Air 03/14 1442 98.7 70 20 110/83 95 Room Air Intake & Output 03/15 1600 03/15 0800 03/15 0000 03/14 1600 03/14 0800 03/14 0000 Intake Total 428 498 6486 340 820 Output Total 1100 098 792 8815 Balance 240 -500 350 -310 -205 Intake, Oral 027 768 4309 340 820 Output, Urine 1100 060 421 0943 Physical Exam: General: Alert and oriented x3, no acute distress Cardiac: RRR, s1s2 Pulm: C T A bilaterally Abdomen: Softly distended, tenderness with palpation to right lower quadrant, non-tender on left side. Midline incision dressing dry and intact. Bowel sounds ausculated in all 4 quadrants. Extremities: Moves all extremities, distal sensation grossly intact. No periopheral edema. Calves soft and non-tender bilaterally. Assessment/Plan Assessment/Plan Assessment: 26-year-old male status post revision of ileaocolonic anastomosis postoperative day #4. His bowel function has yet to return and his pain is also not fully controlled with the current regimen. He has been on clear liquid diet thus far. -Continue clear liquid for now, awaiting bowel function -Continue weaning iv dilaudid, toradol to continue, po oxycodone -Consider getting multiview abdomen if bowel function continues to remain minimal -Continue hep sub q for dvt ppx, continue omeprazole for gi ppx -Will discuss with Dr. Mansfield Core Measures/Miscellaneous Venous Thromboembolism VTE Risk Factors: Inflammatory bowel Dx, Surgery VTE Contraindications: No Contraindications VTE Diagnosis: No VTE Type: NONE VTE Confirmed by (Test): NONE Beta Jose Is Beta Jose a Home Med? No Antibiotics Is Patient on Antibiotics? No
[2017-03-15 14:00] VITALS: BP 110/68
[2017-03-15 14:24] VITALS: BP 110/78
[2017-03-15 23:28] VITALS: BP 100/58
[2017-03-16 06:44] VITALS: BP 104/69
--- NOTE | 2017-03-16 10:13 | PN- General Surgery ---
See Addendum Subjective Subjective: Pt still admits to some crampy abdominal pain. A little less controlled with po meds, but he understands the need to wean down in order to promote bowel function. He is voiding and had 2 very small soft BM's. He had some mild nausea with full liquids last night; a little better today. He ambulates independently. Objective Vital Signs and I&Os Vital Signs Date Time Temp Pulse Resp B/P B/P Pulse O2 O2 Flow FiO2 Mean Ox Delivery Rate 03/16 0644 97.8 67 20 104/69 96 Room Air 03/15 2328 98.1 68 20 100/58 95 Room Air 03/15 1424 99.6 72 18 110/78 94 Room Air 03/15 1400 97.0 60 20 110/68 97 Room Air Intake & Output 03/16 1600 03/16 0800 03/16 0000 03/15 1600 03/15 0800 03/15 0000 Intake Total 1095 240 600 Output Total 972 126 1081 1100 Balance -600 -900 -105 240 -500 Intake, IV 575 Intake, Oral 520 240 600 Number 0 Bowel Movements Output, Urine 299 128 0475 1100 Physical Exam: General: Pt is awake and alert. NAD. Cardiac: regular Pulm: cta bilaterally Abdomen: Soft and mildly distended. Midline incision is clean and intact. There is a small amount of serous drainage above the umbilicus, but otherwise dry. Dry dressing was replaced. Port site dressings remain c/d/i. +yolis-incisional tenderness, as expected. Hypoactive BS were heard. Ext: no edema or tenderness. Assessment/Plan Assessment/Plan Pt is a 26 yo M who is now POD #5 s/p lap to open revision of ileocoloectomy. Pt has had slow return of bowel function, but otherwise remains relatively stable. Plan: -Continue full liquids as tolerated. He doesn't seem ready to advance quite yet. If nausea returns, consider regression to clears. -Oxycodone and toradol for pain control. -DVT and GI ppx. -Continue ambulation. -Dry dressing change daily. -Will discuss with attending. Core Measures/Miscellaneous Venous Thromboembolism VTE Risk Factors: Inflammatory bowel Dx, Surgery VTE Contraindications: No Contraindications VTE Diagnosis: No VTE Type: NONE VTE Confirmed by (Test): NONE Beta Jose Is Beta Jose a Home Med? No Antibiotics Is Patient on Antibiotics? No
[2017-03-16 14:40] VITALS: BP 110/70
--- NOTE | 2017-03-16 19:03 | NUR ---
ALERT AND ORIENTED X 3. ON ROOM AIR. DENIES SHORTNESS OF BREATH. DIMINISHED LUNG SOUNDS NOTED. ENCOURAGED USE OF INCENTIVE SPIROMETER. STEADY GAIT DSG TO ABD IS C/D/I. ABD BINDER ON. PATIENT EXPERIENCING CRAMPING ABDOMINAL PAIN. MEDICATION GIVEN FOR 7/10 PAIN. PATIENT RESTING AT THIS TIME. WILL CONTINUE TO MONITOR
[2017-03-16 22:47] VITALS: BP 118/86
[2017-03-17 06:00] VITALS: BP 102/76
--- NOTE | 2017-03-17 07:32 | PN- General Surgery ---
See Addendum Subjective Subjective: The patient was seen this morning postoperatively day #6. He reports that his pain has been slowly improving. He is tolerating a full liquid diet with occasional nausea but no vomiting. He continues to pass flatus and has had a few small bowel movements. He has no other complaints at the current time. Objective Vital Signs and I&Os Vital Signs Date Time Temp Pulse Resp B/P B/P Pulse O2 O2 Flow FiO2 Mean Ox Delivery Rate 03/17 0600 97.8 72 14 102/76 95 03/16 2247 98.0 80 18 118/86 93 Room Air 03/16 1600 Room Air 03/16 1440 99.2 78 20 110/70 94 Room Air Intake & Output 03/17 0800 03/17 0000 03/16 1600 03/16 0800 03/16 0000 03/15 1600 Intake Total 42 449 463 6195 Output Total 1000 107 509 6993 Balance 42 -250 480 -600 -900 -105 Intake, IV 42 575 Intake, Oral 750 480 520 Number 0 Bowel Movements Output, Urine [phone] [id number] Physical Exam: Gen.: Alert and in no obvious distress Skin: Warm and dry Abdomen: Soft, mildly distended, appropriate incisional tenderness, bowel sounds positive. Surgical incision with mild serous drainage but otherwise intact without signs of infection. Extremities: Bilateral lower extremities are warm without calf tenderness or significant edema. Assessment/Plan Assessment/Plan Assessment: 26-year-old male status post revision of ileocolonic anastomosis postoperative day #6. The patient is making slow improvement and progression with regards to his pain and bowel function. Plan: Advance to a regular diet the patient was educated take it slow and understands that if he is not feeling well to back off the diet. Out of bed and ambulate Daily dressing change Continue current pain regiment GI and DVT prophylaxis Possible discharge tomorrow if tolerates diet Core Measures/Miscellaneous Venous Thromboembolism VTE Risk Factors: Inflammatory bowel Dx, Surgery VTE Contraindications: No Contraindications VTE Diagnosis: No VTE Type: NONE VTE Confirmed by (Test): NONE Beta Jose Is Beta Jose a Home Med? No Antibiotics Is Patient on Antibiotics? No
--- NOTE | 2017-03-17 10:42 | NUR ---
AT 1000AM PT STATED HE FELT NAUSEOUS. PT APPEARED CLAMMY. VITALS TAKEN. BP 118/80, P 81, T 98.2, O2 98% ON RA. ZOFRAN GIVEN FOR NAUSEA. WILL MONITOR PT. DRSNG TAKEN OFF SO PATIENT CAN SHOWER PER PT'S REQUEST. PER SURGICAL STU RINCON, IT IS OK FOR PATIENT TO SHOWER THIS MORNING WITH DRSNG OFF.
[2017-03-17 10:47] VITALS: BP 118/80
[2017-03-17 14:33] VITALS: BP 122/70
[2017-03-17 23:04] VITALS: BP 117/61
[2017-03-18 06:30] VITALS: BP 107/65
--- NOTE | 2017-03-18 08:36 | PN- General Surgery ---
Surgical Brief Attending Note Brief Attending Note: Patient with good bowel function and tolerating diet Only remaining issue is pain control Plan is to discharge home today Please discharge on the following medicines: OxyContin 10 mg 2 times per day, oxycodone 10 mg to 6 hours when necessary, Valium 5 mg 3 times a day when necessary Patient has appointment to see me this Friday for routine follow-up and possible suture removal
[2017-03-18] MEDS ORDERED: OXYCONTIN10 M1 PO (09:06)
[2017-03-18] MEDS ORDERED: OXYCODONE HCL10 M2 PO (09:06)
[2017-03-18] MEDS ORDERED: VALIUM5 M2 PO (09:06)
--- NOTE | 2017-03-18 09:10 | Patient Discharge Instructions ---
Discharge Instructions General Discharge Information You were seen/treated for: Anastomotic stricture You had these procedures: Revision of ileocolonic anastomosis Watch for these problems: Significantly increased pain, vomiting, or temperatures over 101 Increased redness or drainage from incision No bath, but you may shower: Yes Other wound care: Daily dry dressing as needed Diet Continue normal diet: Yes Activity Activity Self Limited: Yes Pounds, do NOT lift more than: 10 Other activity limits: Do not drive or operate heavy machinery until okayed by your DrBrandon and off all pain medications Acute Coronary Syndrome Inclusion Criteria At DC or during hospital stay patient has or had the following: ACS DIAGNOSIS No Discharge Core Measures Meds if any: Prescribed or Continued at Discharge Meds if any: NOT Prescribed or Continued at Discharge Congestive Heart Failure Inclusion Criteria At DC or during hospital stay patient has or had the following: CHF DIAGNOSIS No Discharge Core Measures Meds if any: Prescribed or Continued at Discharge Meds if any: NOT Prescribed or Continued at Discharge Cerebrovascular accident Inclusion Criteria At DC or during hospital stay patient has or had the following: CVA/TIA Diagnosis No Discharge Core Measures Meds if any: Prescribed or Continued at Discharge Meds if any: NOT Prescribed or Continued at Discharge Venous thromboembolism Inclusion Criteria VTE Diagnosis No VTE Type NONE VTE Confirmed by (Test) NONE Discharge Core Measures - Per Current guidelines, there needs to be overlap - treatment for the first 5 days of Warfarin therapy. - If discharged on Warfarin prior to 5 days of - overlap therapy, the patient will need to be - assessed for post discharge needs including - *Post discharge parental anticoagulation - *Warfarin and/or parental anticoagulation education - *Follow up date to check INR post discharge At least 5 days overlap therapy as Inpatient No Meds if any: Prescribed or Continued at Discharge Note: Overlap Therapy is Warfarin and Anticoagulant Meds if any: NOT Prescribed or Continued at Discharge
--- NOTE | 2017-03-18 09:14 | Surgical Discharge Summary ---
Visit Information Visit Dates Admission Date: 03/11/17 Discharge Date: 03/18/17 History of Present Illness Chief Complaint: See admitting H&P Medical History Neurological: NONE EENT: NONE Cardiovascular: NONE Respiratory: asthma Gastrointestinal: Crohn's disease, PERFORATION Hepatic: NONE Renal: NONE Musculoskeletal: NONE Psychiatric: NONE Endocrine: NONE Blood Disorders: NONE Cancer(s): NONE NEPHROLOGY NURSE/Reproductive: NONE History of MRSA: No History of VRE: No History of CDIFF: No Isolation History: Standard Influenza Vaccine: 06/29/16 Surgical History Pertinent Surgical History: hernia repair-incisional, RECTAL FISTULA, ILEECTOMY, ABDOMINAL MESH ileocectomy Family History Relations & Conditions If Any: Relation not specified for: FH: inflammatory bowel disease Psychosocial History Where Do You Live? Home Who Do You Live With? Spouse Services at Home: None What is Your Primary Language? Kazakh Review of Systems: See admitting H&P Hospital Course Course Attending Physician: JULY RENDON JR, DO Primary Care Physician: TANA PACK,[facility] Course: The patient was electively admitted on 03/11/2017. He was brought to the operating theater where he underwent a revision of his ileal colonic anastomosis. Postoperatively the patient slowly progressed, his bowel function gradually returned, and his diet was advanced/tolerated. The patient's pain was difficult to manage due to his previous use of narcotics. Eventually his pain was better managed and he was discharged home with an uneventful hospital course. Complications: None Allergies: Coded Allergies: shrimp (? 03/10/17) Disposition Summary Disposition Principal Diagnosis: Ileocolonic stricture Additional Diagnosis: None Discharge Disposition: home or self care Discharge Instructions General Discharge Information Code Status: Full Code Patient's Diet: Resume previous low fiber diet Patient's Activity: Self-limited/do not lift more than 10 pounds/no driving or operating heavy machinery while on pain medications Follow-Up Instructions/Appts: Call the office to be seen in one week Medications at Discharge Discharge Medications: Stop taking the following medications: Adalimumab (Humira Pen) 40 MG/0.8 ML PEN.IJ.KIT Inject into fatty tissue EVERY 2 WEEKS Qty = 2 Oxycodone HCl/Acetaminophen (Oxycodone-Acetaminophen 10-325) 10 MG-325 MG TABLET ORAL 4 times daily as needed Metronidazole (Flagyl) 500 MG TABLET ORAL TWICE DAILY Continue taking these medications: Albuterol Sulfate (Proair Hfa) 90 MCG HFA.AER.AD 2 Puff Inhale through mouth EVERY 4-6 HOURS NEEDED as needed for BREATHING PROBLEMS Qty = 9 Fluticasone Propionate/Salme (Advair Hfa 230-21 Mcg Inhaler) 230 MCG-21 MCG/ ACTUATION HFA.AER.AD PUFF ORAL Qty = 12 Comments: SYMBICORT GIVEN IN HOSPITAL Last Taken:11/05/16 Time:10:15 AM Fluticasone Propionate (Flonase Allergy Relief) 50 MCG/ACTUATION SPRAY.SUSP DAILY Duloxetine Hydrochloride (Cymbalta) 30 MG CAPSULE.DR 1 Capsule ORAL DAILY Fexofenadine HCl (Debbie Allergy) 180 MG TABLET 1 Tablet ORAL DAILY Zolpidem Tartrate (Ambien) 10 MG TABLET 1 Tablet ORAL Every night as needed as needed for SLEEP Start taking the following new medications: Oxycodone HCl (Oxycontin) 10 MG TAB.ER.12H 1 Tablet ORAL TWICE DAILY Qty = 15 No Refills Oxycodone HCl (Oxycodone HCl) 10 MG TABLET 1 Tablet ORAL EVERY SIX HOURS NEEDED as needed for PAIN Qty = 30 No Refills Diazepam (Valium) 5 MG TABLET 1 Tablet ORAL EVERY 8 HOURS as needed for SPASMS Qty = 20 No Refills
[2017-03-18] MEDS ORDERED: COLACE100 M1 PO (09:15)
[2017-03-18] MEDS ORDERED: ZOFRAN ODT4 M1 SL (09:30)
== END 2017-03-18 12:40 | DRG 336 ==
LOC: SDA 01:04 → ENRESERV 16:20 → ENTRNSPT 18:36 → 2NB 19:00 → CMPTRNSPT 21:15 → ENPENDDIS 03-18 09:18 → 2NB 03-18 12:40
PROVIDERS: Nurse Practitioner; Physician Assistant Surgical; ADMIT Colon & Rectal Surgery
PROC: 0DBL0ZX Excision of Transverse Colon, Open Approach, Diagnostic (ICD-10-PCS; principal; 2017-03-11)
PROC: 0DNE4ZZ Release Large Intestine, Percutaneous Endoscopic Approach (ICD-10-PCS; 2017-03-11)
PROC: 0DB80ZX Excision of Small Intestine, Open Approach, Diagnostic (ICD-10-PCS; 2017-03-11)
DX: K91.3 Postprocedural intestinal obstruction (principal); K50.90 Crohn's disease, unspecified, without complications; Y83.2 Surgical operation with anastomosis, bypass or graft as the cause of abnormal reaction of the patient, or of later complication, without mention of misadventure at the time of the procedure; K66.0 Peritoneal adhesions (postprocedural) (postinfection); Z53.31 Laparoscopic surgical procedure converted to open procedure; J45.909 Unspecified asthma, uncomplicated
CPT/HCPCS: 2NBSP; 36415; 82436; 87086; 88307; C9399; J0131; J0690; J1100; J1170; J1644; J1885; J2405; J2550; J3490; J7042